=== PATIENT | male | born 1960 | race Caucasian/White ===

== ENCOUNTER → 2017-09-26 08:26 | Outpatient (CLI) | payer OTHER, SELFPAY ==
[2017-09-26 10:12] LABS: Hemoglobin A1C% w Est Avg Glu 8.6 % (4.0-6.0)
== END ==
PROVIDERS: PCP Internal Medicine; Visit Provider Internal Medicine
DX: E11.9 Type 2 diabetes mellitus without complications (principal)
CPT/HCPCS: 36415; 83036

== ENCOUNTER → 2017-12-02 07:48 | Outpatient (CLI) | payer OTHER, SELFPAY ==
[2017-12-02 08:19] LABS: Hemoglobin A1C% w Est Avg Glu 8.5 % (4.0-6.0)
[2017-12-02 08:39] LABS: Alanine Aminotransferase 44 IU/L (21-72); Albumin 4.1 g/dL (3.5-5.0); Albumin Globulin Ratio 1.5 (1.0-2.8); Alkaline Phosphatase 46 U/L (38-126); Aspartate Aminotransferase 29 IU/L (17-59); BUN Creatinine Ratio 14.3 (6-22); Bilirubin Total 0.7 mg/dL (0.2-1.3); Blood Urea Nitrogen 10 mg/dL (9-20); Calcium 9.3 mg/dL (8.4-10.2); Carbon Dioxide 31 mmol/L (22-32); Chloride 102 mmol/L (98-107); Cholesterol 153 mg/dL (140-199); Estimated Glomerular Filt Rate > 60.0 mL/min (>60); Globulin 2.8 g/dL (1.7-4.1); Glucose 105 mg/dL (70-100); HDL Cholesterol 67 mg/dL (40-60); HEMOLYSIS < 15 (0-50); LDL Cholesterol Calculated 78 mg/dL (<100); Potassium 4.4 mmol/L (3.4-5.1); Sodium 139 mmol/L (137-145); Total Protein 6.9 g/dL (6.3-8.2); Triglycerides 39 mg/dL (35-150)
[2017-12-02 08:42] LABS: Creatinine Urine Random 77.4 mg/dL
[2017-12-02 08:47] LABS: Microalbumi Creatinin Ratio Ur 7.7 ug/mg CR (<30); Microalbumin Urine Random < 0.6 mg/dL (0-1.6)
== END ==
PROVIDERS: PCP Internal Medicine; Visit Provider Internal Medicine Endocrinology, Diabetes & Metabolism
DX: E11.65 Type 2 diabetes mellitus with hyperglycemia (principal)
CPT/HCPCS: 36415; 80053; 80061; 82043; 82570; 83036

== ENCOUNTER → 2018-03-15 08:08 | Outpatient (CLI) | payer OTHER, SELFPAY ==
[2018-03-15 09:45] LABS: Hemoglobin A1C% w Est Avg Glu 8.6 % (4.0-6.0)
== END ==
PROVIDERS: PCP Internal Medicine; Visit Provider Internal Medicine Endocrinology, Diabetes & Metabolism
DX: E11.9 Type 2 diabetes mellitus without complications (principal)
CPT/HCPCS: 36415; 83036

== ENCOUNTER → 2018-06-16 07:55 | Outpatient (CLI) | payer OTHER, SELFPAY ==
[2018-06-16 09:19] LABS: Hemoglobin A1C% w Est Avg Glu 8.1 % (4.0-6.0)
[2018-06-16 09:45] LABS: Cholesterol 170 mg/dL (140-199); HDL Cholesterol 68 mg/dL (40-60); LDL Cholesterol Calculated 89 mg/dL (<100); Triglycerides 66 mg/dL (35-150)
== END ==
PROVIDERS: Family Provider Internal Medicine; PCP Internal Medicine; Visit Provider Internal Medicine Endocrinology, Diabetes & Metabolism
DX: E11.9 Type 2 diabetes mellitus without complications (principal)
CPT/HCPCS: 36415; 80061; 83036

== ENCOUNTER → 2018-09-22 07:42 | Outpatient (CLI) | payer OTHER, SELFPAY ==
[2018-09-22 09:20] LABS: Hemoglobin A1C% w Est Avg Glu 8.5 % (4.0-6.0)
[2018-09-22 09:26] LABS: Cholesterol 167 mg/dL (140-199); HDL Cholesterol 55 mg/dL (40-60); LDL Cholesterol Calculated 100 mg/dL (<100); Triglycerides 59 mg/dL (35-150)
== END ==
PROVIDERS: Family Provider Internal Medicine; PCP Internal Medicine; Visit Provider Internal Medicine Endocrinology, Diabetes & Metabolism
DX: E11.9 Type 2 diabetes mellitus without complications (principal)
CPT/HCPCS: 36415; 80061; 83036

== ENCOUNTER → 2018-12-29 07:36 | Outpatient (CLI) | payer OTHER, SELFPAY ==
[2018-12-29 08:43] LABS: Hemoglobin A1C% w Est Avg Glu 8.4 % (4.0-6.0)
[2018-12-29 09:22] LABS: Creatinine Urine Random 84.2 mg/dL
[2018-12-29 09:23] LABS: Alanine Aminotransferase 25 IU/L (21-72); Albumin 4.2 g/dL (3.5-5.0); Albumin Globulin Ratio 1.5 (1.0-2.8); Alkaline Phosphatase 51 U/L (38-126); Aspartate Aminotransferase 22 IU/L (17-59); BUN Creatinine Ratio 14.3 (6-22); Bilirubin Total 0.7 mg/dL (0.2-1.3); Blood Urea Nitrogen 10 mg/dL (9-20); Calcium 9.9 mg/dL (8.4-10.2); Carbon Dioxide 29 mmol/L (22-32); Chloride 95 mmol/L (98-107); Estimated Glomerular Filt Rate > 60.0 mL/min (>60); Globulin 2.8 g/dL (1.7-4.1); Glucose 160 mg/dL (70-100); HEMOLYSIS < 15 (0-50); Potassium 4.5 mmol/L (3.4-5.1); Sodium 135 mmol/L (137-145)
[2018-12-29 09:24] LABS: Microalbumi Creatinin Ratio Ur 7.1 ug/mg CR (<30); Microalbumin Urine Random 0.6 mg/dL (0-1.6)
== END ==
PROVIDERS: PCP Internal Medicine; Visit Provider Internal Medicine Endocrinology, Diabetes & Metabolism
DX: E11.9 Type 2 diabetes mellitus without complications (principal)
CPT/HCPCS: 36415; 80053; 82043; 82570; 83036

== ENCOUNTER → 2019-03-30 07:53 | Outpatient (CLI) | payer OTHER, SELFPAY ==
[2019-03-30 09:25] LABS: Hemoglobin A1C% w Est Avg Glu 8.9 % (4.0-6.0)
== END ==
PROVIDERS: PCP Internal Medicine Endocrinology, Diabetes & Metabolism; Visit Provider Internal Medicine Endocrinology, Diabetes & Metabolism
DX: E11.9 Type 2 diabetes mellitus without complications (principal)
CPT/HCPCS: 36415; 83036

== ENCOUNTER 2019-04-24 04:48 | Emergency (ER) | payer OTHER, SELFPAY ==
[2019-04-24 05:06] VITALS: BP 159/97; PULSE 77; RESP 18; TEMP 36.9; O2SAT 99; BMI 23.3
--- NOTE | 2019-04-24 05:06 | DI.CT.S_ITS ---
PROCEDURE: CT ABDOMEN PELVIS W CON INDICATIONS: severe Left sided abdominal pain TECHNIQUE: After the administration of intravenous contrast, 5 mm thick sections acquired from the diaphragm to the symphysis. 5 mm coronal and sagittal reformats were acquired. For radiation dose reduction, the following was used: automated exposure control, adjustment of mA and/or kV according to patient size. COMPARISON: None. FINDINGS: Image quality: Excellent. ABDOMEN: Lung bases: Lung bases are clear. Heart size is normal. Solid organs: Mild hepatic steatosis. Liver is normal in size and enhancement. Gallbladder is normal. Biliary system is non dilated. Pancreas enhances normally. Spleen is normal in size and enhancement. No adrenal nodules. Kidneys demonstrate normal size and enhancement, without hydronephrosis. Peritoneum and bowel: There is a large amount of stool in colon. Bowel loops demonstrate normal wall thickness and caliber. No free fluid or air. Nodes and vessels: No retroperitoneal or mesenteric adenopathy by size criteria. Aorta and inferior vena cava are normal in size. Miscellaneous: No ventral hernias. PELVIS: Genitourinary: Bladder wall is mildly thickened. Hyperdensity in dependent bladder lumen may be excreted contrast or small stones cannot be excluded. Prominent prostate. Miscellaneous: No inguinal hernias or adenopathy. Bones: No suspicious bony lesions. No vertebral body compression fractures. Degenerative changes in the lower lumbar spine. IMPRESSION: 1. Mild bladder wall thickening, which may be secondary to cystitis or chronic bladder outlet obstruction. 2. Mild prostatic enlargement. 3. Hepatic steatosis. No significant discrepancy with the director of category management radiology preliminary report. Dictated by: Brandee Sen M.D. on 04/24/2019 at 8:36 Approved by: Brandee Sen M.D. on 04/24/2019 at 8:47
--- NOTE | 2019-04-24 05:07 | ED.ABDPAIN ---
HPI - Abdominal Pain General Chief Complaint: Abdominal Pain Stated Complaint: pain and swelling left side abdomen Time Seen by Provider: 04/24/19 04:51 Source: patient and family Mode of arrival: Ambulatory Limitations: no limitations History of Present Illness HPI narrative: 58-year-old male nonsmoker with history of type 2 diabetes presents with his in the chief complaint of about 2 weeks of gradually worsening left-sided abdominal pain. He states that it is sharp and stabbing and seems to be worse at night. He denies any obvious radiation. He has had no fever chills nor nausea, vomiting or diarrhea. He denies any change in bowel habits. He denies dysuria, frequency or urgency. He denies any injury. He takes no blood thinners. He denies any obvious provocation or palliation MD complaint: abdominal pain and flank pain Onset (ago): week(s) Pain Consistency: intermittent and colicky Location: LUQ and L flank Severity: moderate Quality: cramping, stabbing and aching Relieving factors: nothing Exacerbating factors: nothing Related Data Previous Rx's Medication Instructions Recorded pantoprazole [Protonix] 40 mg PO DAILY #20 tab 04/24/19 Allergies Allergy/AdvReac Type Severity Reaction Status Date / Time No Known Drug Allergies Allergy Verified 04/24/19 05:10 Review of Systems Constitutional Constitutional: Denies chills, Denies fatigue, Denies fever(s), Denies frequent falls, Denies lethargy and Denies weakness Eyes Eyes: Denies change in vision, Denies eye discharge, Denies irritation and Denies loss of vision ENT Ears, Nose, Mouth, and Throat: Denies change in voice, Denies dizziness, Denies neck pain, Denies sore throat and Denies throat swelling Cardiovascular Cardiovascular: Denies chest pain, Denies irregular heart rhythm, Denies lightheadedness, Denies palpitations, Denies dyspnea, Denies dyspnea on exertion and Denies orthopnea Respiratory Respiratory: Denies cough, Denies dyspnea, Denies dyspnea on exertion and Denies wheezing Gastrointestinal Gastrointestinal: Reports abdominal pain, Denies change in bowel habits, Denies diarrhea, Denies nausea and Denies vomiting Genitourinary Genitourinary: Denies hematuria, Denies flank pain, Denies urinary incontinence and Denies urinary urgency Musculoskeletal Musculoskeletal: Denies back pain, Denies muscle weakness, Denies neck pain, Denies numbness and Denies tingling Integumentary/Breasts Skin/Breast: Denies pruritus, Denies erythema, Denies rash and Denies wounds Neurologic Neurologic: Denies behavioral changes, Denies confusion, Denies dizziness, Denies frequent falls, Denies loss of vision, Denies numbness, Denies tingling and Denies weakness Psychiatric Psychiatric: Denies anxiety, Denies behavioral changes, Denies confusion, Denies depression, Denies homicidal ideation and Denies suicidal ideation Endocrine Endocrine: Denies fatigue, Denies flushing and Denies palpitations Hematologic/Lymphatic Hematologic/Lymphatic: Denies easy bruising Allergic/Immunologic Allergic/Immunologic: Denies urticaria, Denies throat swelling and Denies wheezing Patient History Social History Smoking Status: Never smoker Smoking Status: Never smoker Exam Narrative Exam Narrative: GENERAL: [58] year old patient appears stated age. Well-nourished, well-developed patient, in mild distress. HEAD: Atraumatic. Normocephalic. EYES: Pupils equal round and reactive. Extraocular motions intact. No scleral icterus. No injection or drainage. ENT: Nose without bleeding, purulent drainage. Throat without erythema, tonsillar hypertrophy or exudate. Airway patent. NECK: Trachea midline. Non tender CARDIOVASCULAR: Regular rate and rhythm without murmurs, gallops, or rubs. RESPIRATORY: Clear to auscultation. Breath sounds equal bilaterally. No wheezes, rales, or rhonchi. GASTROINTESTINAL: Abdomen soft, non-tender, nondistended. EXTREMITIES: No edema or joint tenderness. BACK: Nontender without deformity or crepitance. No flank tenderness. NEURO: AOx3. SKIN: No rash or erythema of visible areas Initial Vital Signs Initial Vital Signs: Vital Signs Temperature 98.4 F 04/24/19 05:06 Pulse Rate 77 04/24/19 05:06 Respiratory Rate 18 04/24/19 05:06 Blood Pressure 159/97 H 04/24/19 05:06 Pulse Oximetry 99 04/24/19 05:06 Course Orders Ordered: ED Orders 04/24/19 05:06 CT abdomen pelvis w con Stat 04/24/19 05:15 Complete Blood Count AUTO DIFF Stat Comprehensive Metabolic Panel Stat Ethanol (ETOH) Stat Lipase Stat Prothrombin Time INR Stat Sodium Chloride (Normal Saline 0.9%) 1,000 mls @ 150 mls/hr IV CONT SJ Last Admin: 04/24/19 05:25 Dose: 150 mls/hr Documented by: RENETTA Discontinued Medications Pantoprazole Sodium (Protonix) 40 mg IV NOW ONE Stop: 04/24/19 06:26 Last Admin: 04/24/19 06:45 Dose: 40 mg Documented by: RENETTA Vital Signs Vital signs: Vital Signs - 8 hr 04/24/19 05:06 Temperature 98.4 F Pulse Rate 77 Respiratory Rate 18 Blood Pressure 159/97 H Pulse Oximetry 99 MDM - Abdominal Pain Lab Data Result diagrams: 04/24/19 05:15 04/24/19 05:15 Labs: Lab Results 04/24/19 04/24/19 04/24/19 Range/Units 05:15 05:15 05:15 WBC 4.3 L (4.5-11.0) X10^3/uL RBC 4.48 L (4.5-5.9) X10^6/uL Hgb 14.5 (13.5-17.5) g/dL Hct 41.7 (41-53) % MCV 93.0 (80-100) fL MCH 32.4 (26-34) PG MCHC 34.8 (30-36) % RDW 13.1 (11.6-14.8) % Plt Count 291 (150-400) X10^3/uL Neut % (Auto) 47.0 L (50-75) % Lymph % (Auto) 34.0 (25-40) % Whitfield % (Auto) 14.0 (3-14) % Eos % (Auto) 4.3 H (2-4) % Baso % (Auto) 0.7 (0-2) % Neut # (Auto) 2000 (3384-4244) /uL Lymph # (Auto) 1500 (3408-2588) /uL Whitfield # (Auto) 600 (0-900) /uL Eos # (Auto) 200 (0-450) /uL Baso # (Auto) 0 (0-100) /uL PT 11.5 (10.1-12.7) SECONDS INR 1.0 (0.9-1.3) Sodium 132 L (137-145) mmol/L Potassium 5.0 (3.4-5.1) mmol/L Chloride 94 L (98-107) mmol/L Carbon Dioxide 28 (22-32) mmol/L BUN 12 (9-20) mg/dL Creatinine 0.70 (0.66-1.25) mg/dL Estimated GFR > 60.0 (>60) mL/min BUN/Creatinine Ratio 17.1 (6-22) Glucose 277 H (70-100) mg/dL Calcium 9.5 (8.4-10.2) mg/dL Total Bilirubin 0.9 (0.2-1.3) mg/dL AST 37 (17-59) IU/L ALT 21 (<50) IU/L Alkaline Phosphatase 44 (38-126) U/L Total Protein 7.6 (6.3-8.2) g/dL Albumin 4.5 (3.5-5.0) g/dL Globulin 3.1 (1.7-4.1) g/dL Albumin/Globulin Ratio 1.5 (1.0-2.8) Lipase 27 (23-300) U/L Ethyl Alcohol ( - 10) mg/dL 04/24/19 Range/Units 05:15 WBC (4.5-11.0) X10^3/uL RBC (4.5-5.9) X10^6/uL Hgb (13.5-17.5) g/dL Hct (41-53) % MCV (80-100) fL MCH (26-34) PG MCHC (30-36) % RDW (11.6-14.8) % Plt Count (150-400) X10^3/uL Neut % (Auto) (50-75) % Lymph % (Auto) (25-40) % Whitfield % (Auto) (3-14) % Eos % (Auto) (2-4) % Baso % (Auto) (0-2) % Neut # (Auto) (2085-8501) /uL Lymph # (Auto) (2496-9417) /uL Whitfield # (Auto) (0-900) /uL Eos # (Auto) (0-450) /uL Baso # (Auto) (0-100) /uL PT (10.1-12.7) SECONDS INR (0.9-1.3) Sodium (137-145) mmol/L Potassium (3.4-5.1) mmol/L Chloride (98-107) mmol/L Carbon Dioxide (22-32) mmol/L BUN (9-20) mg/dL Creatinine (0.66-1.25) mg/dL Estimated GFR (>60) mL/min BUN/Creatinine Ratio (6-22) Glucose (70-100) mg/dL Calcium (8.4-10.2) mg/dL Total Bilirubin (0.2-1.3) mg/dL AST (17-59) IU/L ALT (<50) IU/L Alkaline Phosphatase (38-126) U/L Total Protein (6.3-8.2) g/dL Albumin (3.5-5.0) g/dL Globulin (1.7-4.1) g/dL Albumin/Globulin Ratio (1.0-2.8) Lipase (23-300) U/L Ethyl Alcohol < 10 ( - 10) mg/dL Discharge Plan Departure Patient Disposition: Home Clinical Impression: Abdominal pain Qualifiers: Abdominal location: left upper quadrant Qualified Code(s): R10.12 - Left upper quadrant pain Instructions: DI for Abdominal Pain-Adult Activity Restrictions/Additional Instructions: *You have been diagnosed with [left upper quadrant pain] *What to do: *Take medications as directed *Follow up with your primary care provider in 2-3 days, call for an appointment. Let them know you were seen in the Emergency Department and that we ask that you be seen in follow up *Return to ER if you should have any new, worsening or concerning symptoms Prescriptions: New pantoprazole [Protonix] 40 mg tablet,delayed release (DR/EC) 40 mg PO DAILY Qty: 20 RF: 0 Referrals: Reymundo Ramos MD [Primary Care Provider] -
--- NOTE | 2019-04-24 05:24 | PC.NURSE ---
reports difficult stools last few days
[2019-04-24] MEDS: SODIUM CHLORIDE 0.9% 1,000 ML 150 ML IV (05:25)
[2019-04-24 05:31] LABS: Add Manual Diff / Slide Review NO; Basophils Absolute Auto 0 /uL (0-100); Basophils Percent Auto 0.7 % (0-2); Eosinophils Absolute Auto 200 /uL (0-450); Eosinophils Percent Auto 4.3 % (2-4); Hematocrit 41.7 % (41-53); Hemoglobin 14.5 g/dL (13.5-17.5); Lymphocytes Absolute Auto 1500 /uL (1100-4500); Mean Corpuscular HGB Conc 34.8 % (30-36); Mean Corpuscular Hemoglobin 32.4 PG (26-34); Monocytes Absolute Auto 600 /uL (0-900); Neutrophils Absolute Auto 2000 /uL (1500-7000); Platelet Count 291 X10^3/uL (150-400); Red Blood Cell Count 4.48 X10^6/uL (4.5-5.9); Red Cell Distribution Width 13.1 % (11.6-14.8); White Blood Cell Count 4.3 X10^3/uL (4.5-11.0)
[2019-04-24 05:36] LABS: Prothrombin Time 11.5 SECONDS (10.1-12.7)
[2019-04-24 05:40] LABS: Alanine Aminotransferase 21 IU/L (<50); Albumin 4.5 g/dL (3.5-5.0); Albumin Globulin Ratio 1.5 (1.0-2.8); Alkaline Phosphatase 44 U/L (38-126); Aspartate Aminotransferase 37 IU/L (17-59); BUN Creatinine Ratio 17.1 (6-22); Bilirubin Total 0.9 mg/dL (0.2-1.3); Blood Urea Nitrogen 12 mg/dL (9-20); Calcium 9.5 mg/dL (8.4-10.2); Carbon Dioxide 28 mmol/L (22-32); Chloride 94 mmol/L (98-107); Estimated Glomerular Filt Rate > 60.0 mL/min (>60); Ethanol (ETOH) < 10 mg/dL; Globulin 3.1 g/dL (1.7-4.1); Glucose 277 mg/dL (70-100); Lipase 27 U/L (23-300); Sodium 132 mmol/L (137-145); Total Protein 7.6 g/dL (6.3-8.2)
[2019-04-24 05:41] LABS: HEMOLYSIS 147 (0-50)
--- NOTE | 2019-04-24 05:43 | PC.NURSE ---
left forearm IV blew in ct. CT zuly placed 20g RAC and continued with exam. Patient reports 2/10 pain from compromised IV site. 1cm radius bleb present at IV site. pressure dressing applied with coban and 2x2. Patient reports no pain after IV removed.
--- NOTE | 2019-04-24 05:47 | PC.NURSE ---
placed by [facility] tech
[2019-04-24] MEDS: PANTOPRAZOLE 40 MG VIAL IV (06:45)
[2019-04-24 07:16] VITALS: BP 147/84; PULSE 63; RESP 14; O2SAT 99
== END 2019-04-24 07:19 | disposition home or self-care (01) ==
PROVIDERS: Emergency Provider Emergency Medicine; PCP Internal Medicine Endocrinology, Diabetes & Metabolism
DX: R10.12 Left upper quadrant pain (principal)
CPT/HCPCS: 36415; 74177; 80053; 80320; 83690; 85025; 85610; 96361; 96374; 99283; 99284; C9113; Q9967

== ENCOUNTER → 2019-07-02 08:00 | Outpatient (CLI) | payer BC, SELFPAY ==
[2019-07-02 08:35] LABS: Hemoglobin A1C% w Est Avg Glu 8.1 % (4.0-6.0)
[2019-07-02 09:31] LABS: Cholesterol 155 mg/dL (140-199); HDL Cholesterol 72 mg/dL (40-60); LDL Cholesterol Calculated 74 mg/dL (<100); Triglycerides 47 mg/dL (35-150)
== END ==
PROVIDERS: PCP Internal Medicine Endocrinology, Diabetes & Metabolism; Referring Provider Psychiatry & Neurology Neurology; Visit Provider Psychiatry & Neurology Neurology
DX: E11.9 Type 2 diabetes mellitus without complications (principal)
CPT/HCPCS: 36415; 80061; 83036

== ENCOUNTER → 2019-09-28 07:38 | Outpatient (CLI) | payer BC, SELFPAY ==
[2019-09-28 08:19] LABS: Hemoglobin A1C% w Est Avg Glu 8.3 % (4.0-6.0)
== END ==
PROVIDERS: PCP Internal Medicine Endocrinology, Diabetes & Metabolism; Referring Provider Psychiatry & Neurology Neurology; Visit Provider Psychiatry & Neurology Neurology
DX: E11.9 Type 2 diabetes mellitus without complications (principal)
CPT/HCPCS: 36415; 83036

== ENCOUNTER → 2019-12-27 07:26 | Outpatient (CLI) | payer BC, SELFPAY ==
[2019-12-27 08:50] LABS: Hemoglobin A1C% w Est Avg Glu 7.8 % (4.0-6.0)
[2019-12-27 08:57] LABS: Creatinine Urine Random 64.4 mg/dL
[2019-12-27 09:01] LABS: Alanine Aminotransferase 22 IU/L (<50); Albumin 4.2 g/dL (3.5-5.0); Albumin Globulin Ratio 1.7 (1.0-2.8); Alkaline Phosphatase 45 U/L (38-126); Aspartate Aminotransferase 30 IU/L (17-59); BUN Creatinine Ratio 11.8 (6-22); Bilirubin Total 0.6 mg/dL (0.2-1.3); Blood Urea Nitrogen 8 mg/dL (9-20); Calcium 9.8 mg/dL (8.4-10.2); Carbon Dioxide 29 mmol/L (22-32); Chloride 96 mmol/L (98-107); Estimated Glomerular Filt Rate > 60.0 mL/min (>60); Globulin 2.5 g/dL (1.7-4.1); Glucose 128 mg/dL (70-100); HEMOLYSIS < 15 (0-50); Potassium 4.8 mmol/L (3.4-5.1); Sodium 133 mmol/L (137-145); Total Protein 6.7 g/dL (6.3-8.2)
[2019-12-27 09:03] LABS: Microalbumi Creatinin Ratio Ur 9.3 ug/mg CR (<30); Microalbumin Urine Random < 0.6 mg/dL (0-1.6)
== END ==
PROVIDERS: PCP Internal Medicine Endocrinology, Diabetes & Metabolism; Referring Provider Internal Medicine Endocrinology, Diabetes & Metabolism; Visit Provider Internal Medicine Endocrinology, Diabetes & Metabolism
DX: E11.9 Type 2 diabetes mellitus without complications (principal)
CPT/HCPCS: 36415; 80053; 82043; 82570; 83036

== ENCOUNTER → 2020-07-09 07:45 | Outpatient (CLI) | payer BC, SELFPAY ==
[2020-07-09 08:18] LABS: Hemoglobin A1C% w Est Avg Glu 8.1 % (4.0-6.0)
== END ==
PROVIDERS: PCP Internal Medicine Endocrinology, Diabetes & Metabolism; Referring Provider Internal Medicine Endocrinology, Diabetes & Metabolism; Visit Provider Internal Medicine Endocrinology, Diabetes & Metabolism
DX: E11.65 Type 2 diabetes mellitus with hyperglycemia (principal)
CPT/HCPCS: 36415; 83036

== ENCOUNTER → 2020-07-23 07:49 | Outpatient (CLI) | payer BC, SELFPAY ==
[2020-07-23] MEDS: COVID-19 VACC #1, MRNA(MOD) 100 MCG/0.5 ML VIAL IM (07:55)
== END ==
PROVIDERS: PCP Internal Medicine Endocrinology, Diabetes & Metabolism; Visit Provider Internal Medicine
DX: Z23 Encounter for immunization (principal)
CPT/HCPCS: 0011A; 91301

== ENCOUNTER → 2020-08-20 07:53 | Outpatient (CLI) | payer BC, SELFPAY ==
[2020-08-20] MEDS: COVID-19 VACC #2, MRNA(MOD) 100 MCG/0.5 ML VIAL IM (08:03)
== END ==
PROVIDERS: PCP Internal Medicine Endocrinology, Diabetes & Metabolism; Visit Provider Internal Medicine
DX: Z23 Encounter for immunization (principal)
CPT/HCPCS: 0012A; 91301

== ENCOUNTER → 2020-11-05 09:56 | Outpatient (CLI) | payer BC, SELFPAY ==
[2020-11-05 10:26] LABS: Add Manual Diff / Slide Review NO; Basophils Absolute Auto 0 /uL (0-100); Basophils Percent Auto 0.8 % (0-2); Eosinophils Absolute Auto 100 /uL (0-450); Eosinophils Percent Auto 1.7 % (2-4); Hematocrit 40.6 % (41-53); Hemoglobin 13.8 g/dL (13.5-17.5); Lymphocytes Absolute Auto 1000 /uL (1100-4500); Lymphocytes Percent Auto 23.9 % (25-40); Mean Corpuscular HGB Conc 34.1 % (30-36); Mean Corpuscular Volume 93.9 fL (80-100); Monocytes Absolute Auto 500 /uL (0-900); Monocytes Percent Auto 12.7 % (3-14); Neutrophils Absolute Auto 2500 /uL (1500-7000); Neutrophils Percent Auto 60.9 % (50-75); Platelet Count 259 X10^3/uL (150-400); Red Blood Cell Count 4.33 X10^6/uL (4.5-5.9); Red Cell Distribution Width 12.9 % (11.6-14.8); White Blood Cell Count 4.1 X10^3/uL (4.5-11.0)
[2020-11-05 10:53] LABS: Cholesterol 178 mg/dL (140-199); HDL Cholesterol 91 mg/dL (40-60); LDL Cholesterol Calculated 79 mg/dL (<100); Triglycerides 42 mg/dL (35-150)
[2020-11-05 11:24] LABS: Prostate Specific Antigen 1.97 ng/mL (0.10-4.00)
== END ==
PROVIDERS: PCP Internal Medicine; Referring Provider Internal Medicine; Visit Provider Internal Medicine
DX: Z12.5 Encounter for screening for malignant neoplasm of prostate (principal); E78.49 Other hyperlipidemia; R10.12 Left upper quadrant pain
CPT/HCPCS: 36415; 80061; 84153; 85025

== ENCOUNTER 2020-12-10 09:45 | Outpatient (RCR) | payer BC, SELFPAY ==
--- NOTE | 2020-10-03 12:35 | PT.OIE ---
Current Diagnoses Sciatica, unspecified side (10/03/20) Visit Care Team Role Provider Type Duke Leon MD Attending Provider Physician Primary Care Provider Referring Provider Specialty: Internal Medicine Address: [address] [place] [address], [id number] Email: [email or web address] by [email or web address] in [email or web address] Initial Evaluation PT-OP-A Visit Information Start: 10/03/20 12:09 Freq: Status: Active Protocol: Document 10/03/20 12:10 HH (Rec: 10/03/20 12:35 [email or web address]) Out-Patient Physical Therapy Visit Information Visit Information Visit Type Initial Evaluation Visit Start Time 09:45 Visit Stop Time 10:30 Total Visit Minutes 45 Visit Number 1/6 Number of YEAST SUPERVISOR Visits 0 Evaluation Information Evaluation Date 10/03/20 Precautions Precautions DMII PT-OP-B Current Condition Start: 10/03/20 12:09 Freq: Status: Active Protocol: Document 10/03/20 12:10 HH (Rec: 10/03/20 12:35 [email or web address]) Current Condition History of Current Condition Onset Date 10 days ago Current Complaints R lateral hip pain, radiating pain to lateral knee, difficulty sleeping History of Current Condition Marlo is a 60 active and healthy male here for his new onset of R lateral hip pain with radiating pain to lateral knee started 10 days ago. No known injury. His pain is very severe 7/10 that affects his sleep since then. He has not been able to sleep well and on his R side (pt is a side sleeper). He notices bending over, lying in flat surface tend to aggravate his pain and it comes with some tingling sensation. Standing and walking seem not to bother him as much. 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 PMH includes a hip injury at the same location few years ago from play ice hockey. Future Testing and Treatments Planned pt is currently taking oxycodone and antiinflammatory medications for pain management. Personal Factors Other Personal Factors That May Effect DM II Therapy/Recovery PT-OP-C Subjective Start: 10/03/20 12:09 Freq: Status: Active Protocol: Document 10/03/20 12:10 HH (Rec: 10/03/20 12:35 [email or web address]) Patient Questionnaires Oswestry Low Back Index Oswestry Score 12 Oswestry Impairment 1 to 19% Impaired (Score 1-19) OP-PT Pain Assessment Location R hip Pain Location Details Lateral hip (above greater trochanter) Intensity 7 Scale Used Numeric (0 - 10) Description Aching,Sharp Frequency Frequent Pain Aggravating Factors Position,Activity,Bending Pain Alleviating Factors Standing Other Pain Alleviating Factors walking PT-OP-D Balance Start: 10/03/20 12:09 Freq: Status: Active Protocol: Document 10/03/20 12:10 HH (Rec: 10/03/20 12:35 [email or web address]) Balance Tests Single Limb Standing Single Limb- Right >20 no deficits noted Single Limb- Left >20 no deficits noted PT-OP-F Manual Assessment Start: 10/03/20 12:09 Freq: Status: Active Protocol: Document 10/03/20 12:10 HH (Rec: 10/03/20 12:35 [email or web address]) Manual Assessments Soft Tissue Assessment Soft Tissue Mobility Assessment significant pain with pressure at gluteus medius tendon above R greater trochanter. moderate discomfort with pressure at R TFL PT-OP-G Mobility & Gait Start: 10/03/20 12:09 Freq: Status: Active Protocol: Document 10/03/20 12:10 HH (Rec: 10/03/20 12:35 [email or web address]) OP Gait Assessment Comments Gait Comments L hip drop noted during R stance phase PT-OP-H Neuro Start: 10/03/20 12:09 Freq: Status: Active Protocol: Document 10/03/20 12:10 HH (Rec: 10/03/20 12:35 [email or web address]) Sensation Evaluation Gross Sensation Gross Sensation WNL Deep Tendon Reflex & Clonus Assessment Deep Tendon Reflex Left Patellar Deep Tendon Reflex 2+ Normal Right Patellar Deep Tendon Reflex 1+ Diminished Bilateral Achilles Deep Tendon Reflex 2+ Normal PT-OP-K Range of Motion Start: 10/03/20 12:09 Freq: Status: Active Protocol: Document 10/03/20 12:10 HH (Rec: 10/03/20 12:35 [email or web address]) Lumbar Spine Range of Motion Lumbar Spine Active Degrees Comments toe touch test= 12.5 inches from the floor. insufficent lumbar flexion and hip flexion SB to R= 22 inches with posterior hip pain on R SB to L= 23 inches without pain Hip Goniometric Range of Motion Hip Left Active Hip ROM WFL No Straight Leg Raise 48 Right Active Hip ROM WFL No Straight Leg Raise 45 PT-OP-L Special Tests Start: 10/03/20 12:09 Freq: Status: Active Protocol: Document 10/03/20 12:10 HH (Rec: 10/03/20 12:35 [email or web address]) Special Tests Lumbar Spine Special Tests quadrant test Test Results pain at posterior hip Comments extension, SB and rot to R Slump Test Results -ve Straight Leg Raise Test Results -ve Hip Special Tests KIRSTEN test Test Results +VE B Comments both LE stay at parallel to table without any adduction. PT-OP-M Strength Start: 10/03/20 12:09 Freq: Status: Active Protocol: Document 10/03/20 12:10 HH (Rec: 10/03/20 12:35 [email or web address]) Hip Strength Hip Manual Muscle Testing Right Flexion (L2) 4+ Good+ Extension (S1) 4+ Good+ Abduction 4+ Good+ Adduction 4+ Good+ Left Flexion (L2) 4+ Good+ Extension (S1) 4+ Good+ Abduction 4+ Good+ Adduction 4+ Good+ Knee Strength Knee Manual Muscle Testing Right Flexion (S2) 5 Normal Extension (L3) 5 Normal Left Flexion (S2) 5 Normal Extension (L3) 5 Normal Ankle/Foot Strength Ankle and Foot Manual Muscle Testing Right Dorsiflexion (L4) 5 Normal Plantarflexion (S1) 5 Normal Left Dorsiflexion (L4) 5 Normal Plantarflexion (S1) 5 Normal PT-OP-Q Treatments Start: 10/03/20 12:09 Freq: Status: Active Protocol: Document 10/03/20 12:10 HH (Rec: 10/03/20 12:35 [email or web address]) Therapeutic Exercises Standing Exercises tennis ball Standing Exercise Name self release at R glute med tendon against wall Side right Comments HEP PT-OP-T Assessment and Plan Start: 10/03/20 12:09 Freq: Status: Active Protocol: Document 10/03/20 12:10 HH (Rec: 10/03/20 12:35 [email or web address]) Physical Therapy Assessment Rehab Potential Rehabilitation Potential Excellent Evaluation Complexity Number of Personal Factors/Comorbidities 0 Number of Body Systems Impaired 1-2 Clinical Presentation at Evaluation Stable Impairments Impairments Activity Tolerance,Balance, Functional Activities, Functional Mobility,Gait,Pain, Posture,ROM,Soft Tissue Mobility,Strength,Transfers Goals HEP Impairment pt does not have a HEP now Short Term Goal (STG) pt will be compliant to his dialy HEP safely and independently, which allows him to manage his discomfort and increase his flexilibty STG Duration 4 weeks activity tolerance Impairment pt is scared to continue his yard work and weekly running routine. Short Term Goal (STG) pt will be able to initiate his running routine to 2 times /week with 1-2 miles each time without increase in discomfort STG Duration 4weeks Detention Goal (LTG) pt will be able to complete his running routine to 3 times /week with 3-4 miles each time without discomfort LTG Duration 8weeks pain Impairment pt has pain at night 7/10 Short Term Goal (STG) pt will have pain no more than 5/10 at night to improve his sleep 3 out of 7 nights. STG Duration 4 weeks Detention Goal (LTG) pt will have pain no more than 3/10 at night so he sleep on his R side and maintain good quality of sleep 5 out of 7 nights. LTG Duration 8 weeks Assessment Summary Assessment Marlo is a 60yo active and healthy male here for his subacute R lateral hip and knee pain started 10 days ago with no known injury. Upon assessment, pt presents signs of R gluteal medius tendinopathy with severe pain with pressure at the tendon which also radiates side of the hip. His hip strength is WFL but notice significant tightness with hamstrings and lateral musculature (+VE for KIRSTEN test). He also presents mild L hip drop during stance phase with RLE which indicates possible motor control/ stability deficits with single leg stance. Pt will benefit from skilled therapy to improve his overall hip mobility, stability and strength in order for him to sleep normally and complete his daily tasks again. Physical Therapy Plan Frequency and Duration Frequency of Treatment 1x/Week Duration of Treatment 8 weeks Plan of Care Start Date 10/03/20 Plan of Care End Date 12/02/20 Therapeutic Interventions Therapeutic Interventions Aquatic Therapy,Balance Training,Gait Training,Home Exercise Program,Joint Mobilizations,Manual Therapy, Neuromuscular Re-education, Patient/Caregiver Education, Self-Care/Home Management,Soft Tissue Mobilization,Taping, Therapeutic Activities, Therapeutic Exercises Modalities Cold Pack/Ice Massage,Electric Stimulation,Hot Packs, Infrared Therapy,Traction- Mechanical,Ultrasound Next Visit Focus/Plan Next Note Type Treatment Note Next Visit Plan review tennis ball release stm at glute med tendon lateral hip line stretch open book stretch hip stability ex
--- NOTE | 2020-10-03 12:36 | PT.OPPOC ---
Physical, Occupational & Speech Therapy At [facility] Current Diagnoses Sciatica, unspecified side (10/03/20) Visit Care Team Role Provider Type Duke Leon MD Attending Provider Physician Primary Care Provider Referring Provider Specialty: Internal Medicine Address: [address] [place] [address], [id number] Email: [email or web address] Plan Of Care PT-OP-T Assessment and Plan Start: 10/03/20 12:09 Freq: Status: Active Protocol: Document 10/03/20 12:10 HH (Rec: 10/03/20 12:35 HH [email or web address]) Physical Therapy Assessment Rehab Potential Rehabilitation Potential Excellent Evaluation Complexity Number of Personal Factors/Comorbidities 0 Number of Body Systems Impaired 1-2 Clinical Presentation at Evaluation Stable Impairments Impairments Activity Tolerance,Balance, Functional Activities, Functional Mobility,Gait,Pain, Posture,ROM,Soft Tissue Mobility,Strength,Transfers Goals HEP Impairment pt does not have a HEP now Short Term Goal (STG) pt will be compliant to his dialy HEP safely and independently, which allows him to manage his discomfort and increase his flexilibty STG Duration 4 weeks activity tolerance Impairment pt is scared to continue his yard work and weekly running routine. Short Term Goal (STG) pt will be able to initiate his running routine to 2 times /week with 1-2 miles each time without increase in discomfort STG Duration 4weeks Skilled Nursing Goal (LTG) pt will be able to complete his running routine to 3 times /week with 3-4 miles each time without discomfort LTG Duration 8weeks pain Impairment pt has pain at night 7/10 Short Term Goal (STG) pt will have pain no more than 5/10 at night to improve his sleep 3 out of 7 nights. 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 LTG Duration 8 weeks Assessment Summary Assessment Marlo is a 60yo active and healthy male here for his subacute R lateral hip and knee pain started 10 days ago with no known injury. Upon assessment, pt presents signs of R gluteal medius tendinopathy with severe pain with pressure at the tendon which also radiates side of the hip. His hip strength is WFL but notice significant tightness with hamstrings and lateral musculature (+VE for KIRSTEN test). He also presents mild L hip drop during stance phase with RLE which indicates possible motor control/ stability deficits with single leg stance. Pt will benefit from skilled therapy to improve his overall hip mobility, stability and strength in order for him to sleep normally and complete his daily tasks again. Physical Therapy Plan Frequency and Duration Frequency of Treatment 1x/Week Duration of Treatment 8 weeks Plan of Care Start Date 10/03/20 Plan of Care End Date 12/02/20 Therapeutic Interventions Therapeutic Interventions Aquatic Therapy,Balance Training,Gait Training,Home Exercise Program,Joint Mobilizations,Manual Therapy, Neuromuscular Re-education, Patient/Caregiver Education, Self-Care/Home Management,Soft Tissue Mobilization,Taping, Therapeutic Activities, Therapeutic Exercises Modalities Cold Pack/Ice Massage,Electric Stimulation,Hot Packs, Infrared Therapy,Traction- Mechanical,Ultrasound Next Visit Focus/Plan Next Note Type Treatment Note Next Visit Plan review tennis ball release stm at glute med tendon lateral hip line stretch open book stretch hip stability ex Plan of Care Dates Plan of Care Start Date 10/03/20 Plan of Care End Date 12/02/20 Electronically Signed by: Louie Kitchen PT 10/03/20 0507 Please Sign and Return: I have reviewed this Plan of Care and certify that the skilled therapy services above are required to meet the patient?s needs. Physician Signature Date Printed Name and Credentials Clinical Instructor Signature Printed Name and Credentials
--- NOTE | 2020-10-06 16:11 | PT.OTN ---
Current Diagnoses Sciatica, unspecified side (10/06/20) Physical Therapy Treatment Note PT-OP-A Visit Information Start: 10/03/20 12:09 Freq: Status: Active Protocol: Document 10/06/20 15:20 HH (Rec: 10/06/20 16:11 [id number]) Out-Patient Physical Therapy Visit Information Visit Information Visit Type Treatment Note Visit Start Time 15:17 Visit Stop Time 16:00 Total Visit Minutes 43 Visit Number 2/6 Number of ON CALL Visits 0 PT-OP-B Current Condition Start: 10/03/20 12:09 Freq: Status: Active Protocol: Document 10/03/20 12:10 HH (Rec: 10/03/20 12:35 HH [email or web address]) Current Condition History of Current Condition Onset Date 10 days ago Current Complaints R lateral hip pain, radiating pain to lateral knee, difficulty sleeping History of Current Condition Marlo is a 60 active and healthy male here for his new onset of R lateral hip pain with radiating pain to lateral knee started 10 days ago. No known injury. His pain is very severe 11/01 that affects his sleep since then. He has not been able to sleep well and on his R side (pt is a side sleeper). He notices bending over, lying in flat surface tend to aggravate his pain and it comes with some tingling sensation. Standing and walking seem not to bother him as much. 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 PMH includes a hip injury at the same location few years ago from play ice hockey. Future Testing and Treatments Planned pt is currently taking oxycodone and antiinflammatory medications for pain management. Personal Factors Other Personal Factors That May Effect DM II Therapy/Recovery PT-OP-C Subjective Start: 10/03/20 12:09 Freq: Status: Active Protocol: Document 10/06/20 15:20 HH (Rec: 10/06/20 16:11 HH [id number]) OP-PT Subjective Patient Comments Patient Comments I tried to use the tennis ball to massage yesterday and it was killing me the whole day. I couldnt sleep after as well Patient Reported Progress Same PT-OP-D Balance Start: 10/03/20 12:09 Freq: Status: Active Protocol: Document 10/03/20 12:10 HH (Rec: 10/03/20 12:35 [email or web address]) Balance Tests Single Limb Standing Single Limb- Right >20 no deficits noted Single Limb- Left >20 no deficits noted PT-OP-F Manual Assessment Start: 10/03/20 12:09 Freq: Status: Active Protocol: Document 10/03/20 12:10 HH (Rec: 10/03/20 12:35 [email or web address]) Manual Assessments Soft Tissue Assessment Soft Tissue Mobility Assessment significant pain with pressure at gluteus medius tendon above R greater trochanter. moderate discomfort with pressure at R TFL PT-OP-G Mobility & Gait Start: 10/03/20 12:09 Freq: Status: Active Protocol: Document 10/03/20 12:10 HH (Rec: 10/03/20 12:35 [email or web address]) OP Gait Assessment Comments Gait Comments L hip drop noted during R stance phase PT-OP-H Neuro Start: 10/03/20 12:09 Freq: Status: Active Protocol: Document 10/03/20 12:10 HH (Rec: 10/03/20 12:35 [email or web address]) Sensation Evaluation Gross Sensation Gross Sensation WNL Deep Tendon Reflex & Clonus Assessment Deep Tendon Reflex Left Patellar Deep Tendon Reflex 2+ Normal Right Patellar Deep Tendon Reflex 1+ Diminished Bilateral Achilles Deep Tendon Reflex 2+ Normal PT-OP-K Range of Motion Start: 10/03/20 12:09 Freq: Status: Active Protocol: Document 10/03/20 12:10 HH (Rec: 10/03/20 12:35 [email or web address]) Lumbar Spine Range of Motion Lumbar Spine Active Degrees Comments toe touch test= 12.5 inches from the floor. insufficent lumbar flexion and hip flexion SB to R= 22 inches with posterior hip pain on R SB to L= 23 inches without pain Hip Goniometric Range of Motion Hip Left Active Hip ROM WFL No Straight Leg Raise 48 Right Active Hip ROM WFL No Straight Leg Raise 45 PT-OP-L Special Tests Start: 10/03/20 12:09 Freq: Status: Active Protocol: Document 10/03/20 12:10 HH (Rec: 10/03/20 12:35 [email or web address]) Special Tests Lumbar Spine Special Tests quadrant test Test Results pain at posterior hip Comments extension, SB and rot to R Slump Test Results -ve Straight Leg Raise Test Results -ve Hip Special Tests KIRSTEN test Test Results +VE B Comments both LE stay at parallel to table without any adduction. PT-OP-M Strength Start: 10/03/20 12:09 Freq: Status: Active Protocol: Document 10/03/20 12:10 HH (Rec: 10/03/20 12:35 HH [email or web address]) Hip Strength Hip Manual Muscle Testing Right Flexion (L2) 4+ Good+ Extension (S1) 4+ Good+ Abduction 4+ Good+ Adduction 4+ Good+ Left Flexion (L2) 4+ Good+ Extension (S1) 4+ Good+ Abduction 4+ Good+ Adduction 4+ Good+ Knee Strength Knee Manual Muscle Testing Right Flexion (S2) 5 Normal Extension (L3) 5 Normal Left Flexion (S2) 5 Normal Extension (L3) 5 Normal Ankle/Foot Strength Ankle and Foot Manual Muscle Testing Right Dorsiflexion (L4) 5 Normal Plantarflexion (S1) 5 Normal Left Dorsiflexion (L4) 5 Normal Plantarflexion (S1) 5 Normal PT-OP-Q Treatments Start: 10/03/20 12:09 Freq: Status: Active Protocol: Document 10/06/20 15:20 HH (Rec: 10/06/20 16:11 [id number]) Therapeutic Exercises Supine Exercises bridging Side bilateral Reps/Minutes 5 sec hold x 10 Comments for HEP piriformis stretch Side right Reps/Minutes 20 sec stretch x5 Comments for HEP Sitting Exercises hamstring stretch Side bilateral Comments for HEP Standing Exercises IT band stretch Standing Exercise Name tandem stance Side right Reps/Minutes 20 sec x 5 Comments for HEP Manual Therapy Treatment Soft Tissue Mobilization R lateral quad Mobilization Type Myofascial Release,Sustained Pressure,Trigger Point Release Intensity/Depth Superficial Body Position Sidelying glute medius Body Location tendon Mobilization Type Myofascial Release,Sustained Pressure,Trigger Point Release Intensity/Depth Superficial Body Position Sidelying Comments significant pain noted. Joint Mobilizations R hip Joint traction Grade III Body Position Supine Reps/Duration 10 sec hold x8 PT-OP-T Assessment and Plan Start: 10/03/20 12:09 Freq: Status: Active Protocol: Document 10/06/20 15:20 HH (Rec: 10/06/20 16:11 [id number]) Physical Therapy Assessment Goals HEP Impairment pt does not have a HEP now Short Term Goal (STG) pt will be compliant to his dialy HEP safely and independently, which allows him to manage his discomfort and increase his flexilibty STG Duration 4 weeks activity tolerance Impairment pt is scared to continue his yard work and weekly running routine. Short Term Goal (STG) pt will be able to initiate his running routine to 2 times /week with 1-2 miles each time without increase in discomfort STG Duration 4weeks Motor Grader Operator Goal (LTG) pt will be able to complete his running routine to 3 times /week with 3-4 miles each time without discomfort LTG Duration 8weeks pain Impairment pt has pain at night 7/10 Short Term Goal (STG) pt will have pain no more than 5/10 at night to improve his sleep 3 out of 7 nights. STG Duration 4 weeks Motor Grader Operator Goal (LTG) pt will have pain no more than 3/10 at night so he sleep on his R side and maintain good quality of sleep 5 out of 7 nights. LTG Duration 8 weeks Assessment Summary Assessment pt had a flare up yesterday after using the tennis ball to self massage. Pt's TFL/ glute med tendon is highly sensitive to pressure. tx focused on manual therapy and home stretching. Pt mary ann session okay. Physical Therapy Plan Frequency and Duration Frequency of Treatment 1x/Week Duration of Treatment 8 weeks Plan of Care Start Date 10/03/20 Plan of Care End Date 12/02/20 Therapeutic Interventions Therapeutic Interventions Aquatic Therapy,Balance Training,Gait Training,Home Exercise Program,Joint Mobilizations,Manual Therapy, Neuromuscular Re-education, Patient/Caregiver Education, Self-Care/Home Management,Soft Tissue Mobilization,Taping, Therapeutic Activities, Therapeutic Exercises Modalities Cold Pack/Ice Massage,Electric Stimulation,Hot Packs, Infrared Therapy,Traction- Mechanical,Ultrasound Next Visit Focus/Plan Next Note Type Treatment Note Next Visit Plan review tennis ball release stm at glute med tendon lateral hip line stretch open book stretch hip stability ex
--- NOTE | 2020-10-13 11:20 | PT.OTN ---
Current Diagnoses Sciatica, unspecified side (10/13/20) Physical Therapy Treatment Note PT-OP-A Visit Information Start: 10/03/20 12:09 Freq: Status: Active Protocol: Document 10/13/20 09:48 HH (Rec: 10/13/20 11:20 [id number]) Out-Patient Physical Therapy Visit Information Visit Information Visit Type Treatment Note Visit Start Time 10:32 Visit Stop Time 11:15 Total Visit Minutes 43 Visit Number 3/6 Number of TRAVEL MED SURG RN Visits 0 PT-OP-B Current Condition Start: 10/03/20 12:09 Freq: Status: Active Protocol: Document 10/03/20 12:10 HH (Rec: 10/03/20 12:35 HH [email or web address]) Current Condition History of Current Condition Onset Date 10 days ago Current Complaints R lateral hip pain, radiating pain to lateral knee, difficulty sleeping History of Current Condition Marlo is a 60 active and healthy male here for his new onset of R lateral hip pain with radiating pain to lateral knee started 10 days ago. No known injury. His pain is very severe 11/01 that affects his sleep since then. He has not been able to sleep well and on his R side (pt is a side sleeper). He notices bending over, lying in flat surface tend to aggravate his pain and it comes with some tingling sensation. Standing and walking seem not to bother him as much. 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 PMH includes a hip injury at the same location few years ago from play ice hockey. Future Testing and Treatments Planned pt is currently taking oxycodone and antiinflammatory medications for pain management. Personal Factors Other Personal Factors That May Effect DM II Therapy/Recovery PT-OP-C Subjective Start: 10/03/20 12:09 Freq: Status: Active Protocol: Document 10/13/20 09:48 HH (Rec: 10/13/20 11:20 HH [id number]) OP-PT Subjective Patient Comments Patient Comments Im feeling better during the day that i feel less stiff and same with night pain. But i did have severe pain last night. I consulted orthopedist Dr. Hernandez and had an x-ray qwith R hip which is negative for bone fx. And he also believes is IT band syndrome. Patient Reported Progress Improving PT-OP-D Balance Start: 10/03/20 12:09 Freq: Status: Active Protocol: Document 10/03/20 12:10 HH (Rec: 10/03/20 12:35 HH [email or web address]) Balance Tests Single Limb Standing Single Limb- Right >20 no deficits noted Single Limb- Left >20 no deficits noted PT-OP-F Manual Assessment Start: 10/03/20 12:09 Freq: Status: Active Protocol: Document 10/03/20 12:10 HH (Rec: 10/03/20 12:35 HH [email or web address]) Manual Assessments Soft Tissue Assessment Soft Tissue Mobility Assessment significant pain with pressure at gluteus medius tendon above R greater trochanter. moderate discomfort with pressure at R TFL PT-OP-G Mobility & Gait Start: 10/03/20 12:09 Freq: Status: Active Protocol: Document 10/03/20 12:10 HH (Rec: 10/03/20 12:35 HH [email or web address]) OP Gait Assessment Comments Gait Comments L hip drop noted during R stance phase PT-OP-H Neuro Start: 10/03/20 12:09 Freq: Status: Active Protocol: Document 10/03/20 12:10 HH (Rec: 10/03/20 12:35 [email or web address]) Sensation Evaluation Gross Sensation Gross Sensation WNL Deep Tendon Reflex & Clonus Assessment Deep Tendon Reflex Left Patellar Deep Tendon Reflex 2+ Normal Right Patellar Deep Tendon Reflex 1+ Diminished Bilateral Achilles Deep Tendon Reflex 2+ Normal PT-OP-K Range of Motion Start: 10/03/20 12:09 Freq: Status: Active Protocol: Document 10/03/20 12:10 HH (Rec: 10/03/20 12:35 HH [email or web address]) Lumbar Spine Range of Motion Lumbar Spine Active Degrees Comments toe touch test= 12.5 inches from the floor. insufficent lumbar flexion and hip flexion SB to R= 22 inches with posterior hip pain on R SB to L= 23 inches without pain Hip Goniometric Range of Motion Hip Left Active Hip ROM WFL No Straight Leg Raise 48 Right Active Hip ROM WFL No Straight Leg Raise 45 PT-OP-L Special Tests Start: 10/03/20 12:09 Freq: Status: Active Protocol: Document 10/03/20 12:10 HH (Rec: 10/03/20 12:35 HH [email or web address]) Special Tests Lumbar Spine Special Tests quadrant test Test Results pain at posterior hip Comments extension, SB and rot to R Slump Test Results -ve Straight Leg Raise Test Results -ve Hip Special Tests KIRSTEN test Test Results +VE B Comments both LE stay at parallel to table without any adduction. PT-OP-M Strength Start: 10/03/20 12:09 Freq: Status: Active Protocol: Document 10/03/20 12:10 (Rec: 10/03/20 12:35 [email or web address]) Hip Strength Hip Manual Muscle Testing Right Flexion (L2) 4+ Good+ Extension (S1) 4+ Good+ Abduction 4+ Good+ Adduction 4+ Good+ Left Flexion (L2) 4+ Good+ Extension (S1) 4+ Good+ Abduction 4+ Good+ Adduction 4+ Good+ Knee Strength Knee Manual Muscle Testing Right Flexion (S2) 5 Normal Extension (L3) 5 Normal Left Flexion (S2) 5 Normal Extension (L3) 5 Normal Ankle/Foot Strength Ankle and Foot Manual Muscle Testing Right Dorsiflexion (L4) 5 Normal Plantarflexion (S1) 5 Normal Left Dorsiflexion (L4) 5 Normal Plantarflexion (S1) 5 Normal PT-OP-Q Treatments Start: 10/03/20 12:09 Freq: Status: Active Protocol: Document 10/13/20 09:48 (Rec: 10/13/20 11:20 [id number]) Cardio Equipment Bicycle (Upright) Duration (Minutes) 8 Resistance 7 Therapeutic Exercises Supine Exercises rolling pin Supine Exercise Name on R lateral quad Comments for HEP SLR Supine Exercise Name opposite leg bend Reps/Minutes 8x2 figure 4 stretch Side right Reps/Minutes 30 sec x 5 hamstring stretch Side right Reps/Minutes 30 sec x 5 bridging Side bilateral Reps/Minutes 5 sec hold x 10 Comments for HEP piriformis stretch Side right Reps/Minutes 20 sec stretch x5 Comments for HEP Sidelying Exercises IT band stretch Side right Reps/Minutes 20 sec x 4 Comments cues on R lateral weight shift clamshell Reps/Minutes 10 x2 Comments for HEP Manual Therapy Treatment Soft Tissue Mobilization R lateral quad Mobilization Type Myofascial Release,Sustained Pressure,Trigger Point Release Intensity/Depth Superficial Body Position Sidelying glute medius Body Location tendon Mobilization Type Myofascial Release,Sustained Pressure,Trigger Point Release Intensity/Depth Superficial Body Position Sidelying Comments significant pain noted. Joint Mobilizations R hip Joint traction Grade III Body Position Supine Reps/Duration 10 sec hold x8 PT-OP-T Assessment and Plan Start: 10/03/20 12:09 Freq: Status: Active Protocol: Document 10/13/20 09:48 HH (Rec: 10/13/20 11:20 HH [id number]) Physical Therapy Assessment Goals HEP Impairment pt does not have a HEP now Short Term Goal (STG) pt will be compliant to his dialy HEP safely and independently, which allows him to manage his discomfort and increase his flexilibty STG Duration 4 weeks activity tolerance Impairment pt is scared to continue his yard work and weekly running routine. Short Term Goal (STG) pt will be able to initiate his running routine to 2 times /week with 1-2 miles each time without increase in discomfort STG Duration 4weeks Group Home Goal (LTG) pt will be able to complete his running routine to 3 times /week with 3-4 miles each time without discomfort LTG Duration 8weeks pain Impairment pt has pain at night 7/10 Short Term Goal (STG) pt will have pain no more than 5/10 at night to improve his sleep 3 out of 7 nights. STG Duration 4 weeks Focusing Machine Operator Goal (LTG) pt will have pain no more than 3/10 at night so he sleep on his R side and maintain good quality of sleep 5 out of 7 nights. LTG Duration 8 weeks Assessment Summary Assessment Pt overall shows improved pain with less TTP at glute med, TFL and IT band and improved hip mobility. Added clamshell and rolling pin therex to HEP and pt mary ann this session very well. Physical Therapy Plan Frequency and Duration Frequency of Treatment 1x/Week Duration of Treatment 8 weeks Plan of Care Start Date 10/03/20 Plan of Care End Date 12/02/20 Therapeutic Interventions Therapeutic Interventions Aquatic Therapy,Balance Training,Gait Training,Home Exercise Program,Joint Mobilizations,Manual Therapy, Neuromuscular Re-education, Patient/Caregiver Education, Self-Care/Home Management,Soft Tissue Mobilization,Taping, Therapeutic Activities, Therapeutic Exercises Modalities Cold Pack/Ice Massage,Electric Stimulation,Hot Packs, Infrared Therapy,Traction- Mechanical,Ultrasound Next Visit Focus/Plan Next Note Type Treatment Note Next Visit Plan review tennis ball release stm at glute med tendon lateral hip line stretch open book stretch hip stability ex
--- NOTE | 2020-10-21 13:50 | PT.OTN ---
Current Diagnoses Sciatica, unspecified side (10/13/20) Physical Therapy Treatment Note PT-OP-A Visit Information Start: 10/03/20 12:09 Freq: Status: Active Protocol: Document 10/13/20 09:48 HH (Rec: 10/13/20 11:20 [id number]) Out-Patient Physical Therapy Visit Information Visit Information Visit Type Treatment Note Visit Start Time 10:32 Visit Stop Time 11:15 Total Visit Minutes 43 Visit Number 3/6 Number of SALES ROUTE DRIVER Visits 0 PT-OP-B Current Condition Start: 10/03/20 12:09 Freq: Status: Active Protocol: Document 10/03/20 12:10 HH (Rec: 10/03/20 12:35 HH [email or web address]) Current Condition History of Current Condition Onset Date 10 days ago Current Complaints R lateral hip pain, radiating pain to lateral knee, difficulty sleeping History of Current Condition Marlo is a 60 active and healthy male here for his new onset of R lateral hip pain with radiating pain to lateral knee started 10 days ago. No known injury. His pain is very severe 11/01 that affects his sleep since then. He has not been able to sleep well and on his R side (pt is a side sleeper). He notices bending over, lying in flat surface tend to aggravate his pain and it comes with some tingling sensation. Standing and walking seem not to bother him as much. 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 PMH includes a hip injury at the same location few years ago from play ice hockey. Future Testing and Treatments Planned pt is currently taking oxycodone and antiinflammatory medications for pain management. Personal Factors Other Personal Factors That May Effect DM II Therapy/Recovery PT-OP-C Subjective Start: 10/03/20 12:09 Freq: Status: Active Protocol: Document 10/13/20 09:48 HH (Rec: 10/13/20 11:20 HH [id number]) OP-PT Subjective Patient Comments Patient Comments Im feeling better during the day that i feel less stiff and same with night pain. But i did have severe pain last night. I consulted orthopedist Dr. Hernandez and had an x-ray qwith R hip which is negative for bone fx. And he also believes is IT band syndrome. Patient Reported Progress Improving PT-OP-D Balance Start: 10/03/20 12:09 Freq: Status: Active Protocol: Document 10/03/20 12:10 HH (Rec: 10/03/20 12:35 HH [email or web address]) Balance Tests Single Limb Standing Single Limb- Right >20 no deficits noted Single Limb- Left >20 no deficits noted PT-OP-F Manual Assessment Start: 10/03/20 12:09 Freq: Status: Active Protocol: Document 10/03/20 12:10 HH (Rec: 10/03/20 12:35 HH [email or web address]) Manual Assessments Soft Tissue Assessment Soft Tissue Mobility Assessment significant pain with pressure at gluteus medius tendon above R greater trochanter. moderate discomfort with pressure at R TFL PT-OP-G Mobility & Gait Start: 10/03/20 12:09 Freq: Status: Active Protocol: Document 10/03/20 12:10 HH (Rec: 10/03/20 12:35 HH [email or web address]) OP Gait Assessment Comments Gait Comments L hip drop noted during R stance phase PT-OP-H Neuro Start: 10/03/20 12:09 Freq: Status: Active Protocol: Document 10/03/20 12:10 HH (Rec: 10/03/20 12:35 [email or web address]) Sensation Evaluation Gross Sensation Gross Sensation WNL Deep Tendon Reflex & Clonus Assessment Deep Tendon Reflex Left Patellar Deep Tendon Reflex 2+ Normal Right Patellar Deep Tendon Reflex 1+ Diminished Bilateral Achilles Deep Tendon Reflex 2+ Normal PT-OP-K Range of Motion Start: 10/03/20 12:09 Freq: Status: Active Protocol: Document 10/03/20 12:10 HH (Rec: 10/03/20 12:35 HH [email or web address]) Lumbar Spine Range of Motion Lumbar Spine Active Degrees Comments toe touch test= 12.5 inches from the floor. insufficent lumbar flexion and hip flexion SB to R= 22 inches with posterior hip pain on R SB to L= 23 inches without pain Hip Goniometric Range of Motion Hip Left Active Hip ROM WFL No Straight Leg Raise 48 Right Active Hip ROM WFL No Straight Leg Raise 45 PT-OP-L Special Tests Start: 10/03/20 12:09 Freq: Status: Active Protocol: Document 10/03/20 12:10 HH (Rec: 10/03/20 12:35 HH [email or web address]) Special Tests Lumbar Spine Special Tests quadrant test Test Results pain at posterior hip Comments extension, SB and rot to R Slump Test Results -ve Straight Leg Raise Test Results -ve Hip Special Tests KIRSTEN test Test Results +VE B Comments both LE stay at parallel to table without any adduction. PT-OP-M Strength Start: 10/03/20 12:09 Freq: Status: Active Protocol: Document 10/03/20 12:10 (Rec: 10/03/20 12:35 [email or web address]) Hip Strength Hip Manual Muscle Testing Right Flexion (L2) 4+ Good+ Extension (S1) 4+ Good+ Abduction 4+ Good+ Adduction 4+ Good+ Left Flexion (L2) 4+ Good+ Extension (S1) 4+ Good+ Abduction 4+ Good+ Adduction 4+ Good+ Knee Strength Knee Manual Muscle Testing Right Flexion (S2) 5 Normal Extension (L3) 5 Normal Left Flexion (S2) 5 Normal Extension (L3) 5 Normal Ankle/Foot Strength Ankle and Foot Manual Muscle Testing Right Dorsiflexion (L4) 5 Normal Plantarflexion (S1) 5 Normal Left Dorsiflexion (L4) 5 Normal Plantarflexion (S1) 5 Normal PT-OP-Q Treatments Start: 10/03/20 12:09 Freq: Status: Active Protocol: Document 10/13/20 09:48 (Rec: 10/13/20 11:20 [id number]) Cardio Equipment Bicycle (Upright) Duration (Minutes) 8 Resistance 7 Therapeutic Exercises Supine Exercises rolling pin Supine Exercise Name on R lateral quad Comments for HEP SLR Supine Exercise Name opposite leg bend Reps/Minutes 8x2 figure 4 stretch Side right Reps/Minutes 30 sec x 5 hamstring stretch Side right Reps/Minutes 30 sec x 5 bridging Side bilateral Reps/Minutes 5 sec hold x 10 Comments for HEP piriformis stretch Side right Reps/Minutes 20 sec stretch x5 Comments for HEP Sidelying Exercises IT band stretch Side right Reps/Minutes 20 sec x 4 Comments cues on R lateral weight shift clamshell Reps/Minutes 10 x2 Comments for HEP Manual Therapy Treatment Soft Tissue Mobilization R lateral quad Mobilization Type Myofascial Release,Sustained Pressure,Trigger Point Release Intensity/Depth Superficial Body Position Sidelying glute medius Body Location tendon Mobilization Type Myofascial Release,Sustained Pressure,Trigger Point Release Intensity/Depth Superficial Body Position Sidelying Comments significant pain noted. Joint Mobilizations R hip Joint traction Grade III Body Position Supine Reps/Duration 10 sec hold x8 PT-OP-T Assessment and Plan Start: 10/03/20 12:09 Freq: Status: Active Protocol: Document 10/13/20 09:48 HH (Rec: 10/13/20 11:20 HH [id number]) Physical Therapy Assessment Goals HEP Impairment pt does not have a HEP now Short Term Goal (STG) pt will be compliant to his dialy HEP safely and independently, which allows him to manage his discomfort and increase his flexilibty STG Duration 4 weeks activity tolerance Impairment pt is scared to continue his yard work and weekly running routine. Short Term Goal (STG) pt will be able to initiate his running routine to 2 times /week with 1-2 miles each time without increase in discomfort STG Duration 4weeks Prison Goal (LTG) pt will be able to complete his running routine to 3 times /week with 3-4 miles each time without discomfort LTG Duration 8weeks pain Impairment pt has pain at night 7/10 Short Term Goal (STG) pt will have pain no more than 5/10 at night to improve his sleep 3 out of 7 nights. STG Duration 4 weeks Employment Recruiter Goal (LTG) pt will have pain no more than 3/10 at night so he sleep on his R side and maintain good quality of sleep 5 out of 7 nights. LTG Duration 8 weeks Assessment Summary Assessment Pt overall shows improved pain with less TTP at glute med, TFL and IT band and improved hip mobility. Added clamshell and rolling pin therex to HEP and pt mary ann this session very well. Physical Therapy Plan Frequency and Duration Frequency of Treatment 1x/Week Duration of Treatment 8 weeks Plan of Care Start Date 10/03/20 Plan of Care End Date 12/02/20 Therapeutic Interventions Therapeutic Interventions Aquatic Therapy,Balance Training,Gait Training,Home Exercise Program,Joint Mobilizations,Manual Therapy, Neuromuscular Re-education, Patient/Caregiver Education, Self-Care/Home Management,Soft Tissue Mobilization,Taping, Therapeutic Activities, Therapeutic Exercises Modalities Cold Pack/Ice Massage,Electric Stimulation,Hot Packs, Infrared Therapy,Traction- Mechanical,Ultrasound Next Visit Focus/Plan Next Note Type Treatment Note Next Visit Plan review tennis ball release stm at glute med tendon lateral hip line stretch open book stretch hip stability ex
--- NOTE | 2020-10-21 16:10 | PT.OTN ---
Current Diagnoses Sciatica, unspecified side (10/21/20) Physical Therapy Treatment Note PT-OP-A Visit Information Start: 10/03/20 12:09 Freq: Status: Active Protocol: Document 10/21/20 13:15 HH (Rec: 10/21/20 16:10 [id number]) Out-Patient Physical Therapy Visit Information Visit Information Visit Type Treatment Note Visit Start Time 14:33 Visit Stop Time 15:15 Total Visit Minutes 42 Visit Number 4/6 Number of OVEN UNLOADER Visits 0 PT-OP-B Current Condition Start: 10/03/20 12:09 Freq: Status: Active Protocol: Document 10/03/20 12:10 HH (Rec: 10/03/20 12:35 HH [email or web address]) Current Condition History of Current Condition Onset Date 10 days ago Current Complaints R lateral hip pain, radiating pain to lateral knee, difficulty sleeping History of Current Condition Marlo is a 60 active and healthy male here for his new onset of R lateral hip pain with radiating pain to lateral knee started 10 days ago. No known injury. His pain is very severe 7/10 that affects his sleep since then. He has not been able to sleep well and on his R side (pt is a side sleeper). He notices bending over, lying in flat surface tend to aggravate his pain and it comes with some tingling sensation. Standing and walking seem not to bother him as much. 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 PMH includes a hip injury at the same location few years ago from play ice hockey. Future Testing and Treatments Planned pt is currently taking oxycodone and antiinflammatory medications for pain management. Personal Factors Other Personal Factors That May Effect DM II Therapy/Recovery PT-OP-C Subjective Start: 10/03/20 12:09 Freq: Status: Active Protocol: Document 10/21/20 13:15 HH (Rec: 10/21/20 16:10 [id number]) OP-PT Subjective Patient Comments Patient Comments my pain is always the worst in the morning. My pain is around 5/10. The more i walk the better it is. Im still unable to sleep without pain pill (oxycodone) but oralia been taking it less. Patient Reported Progress Improving PT-OP-D Balance Start: 10/03/20 12:09 Freq: Status: Active Protocol: Document 10/03/20 12:10 HH (Rec: 10/03/20 12:35 HH [email or web address]) Balance Tests Single Limb Standing Single Limb- Right >20 no deficits noted Single Limb- Left >20 no deficits noted PT-OP-F Manual Assessment Start: 10/03/20 12:09 Freq: Status: Active Protocol: Document 10/03/20 12:10 HH (Rec: 10/03/20 12:35 HH [email or web address]) Manual Assessments Soft Tissue Assessment Soft Tissue Mobility Assessment significant pain with pressure at gluteus medius tendon above R greater trochanter. moderate discomfort with pressure at R TFL PT-OP-G Mobility & Gait Start: 10/03/20 12:09 Freq: Status: Active Protocol: Document 10/03/20 12:10 HH (Rec: 10/03/20 12:35 HH [email or web address]) OP Gait Assessment Comments Gait Comments L hip drop noted during R stance phase PT-OP-H Neuro Start: 10/03/20 12:09 Freq: Status: Active Protocol: Document 10/03/20 12:10 HH (Rec: 10/03/20 12:35 [email or web address]) Sensation Evaluation Gross Sensation Gross Sensation WNL Deep Tendon Reflex & Clonus Assessment Deep Tendon Reflex Left Patellar Deep Tendon Reflex 2+ Normal Right Patellar Deep Tendon Reflex 1+ Diminished Bilateral Achilles Deep Tendon Reflex 2+ Normal PT-OP-K Range of Motion Start: 10/03/20 12:09 Freq: Status: Active Protocol: Document 10/03/20 12:10 HH (Rec: 10/03/20 12:35 HH [email or web address]) Lumbar Spine Range of Motion Lumbar Spine Active Degrees Comments toe touch test= 12.5 inches from the floor. insufficent lumbar flexion and hip flexion SB to R= 22 inches with posterior hip pain on R SB to L= 23 inches without pain Hip Goniometric Range of Motion Hip Left Active Hip ROM WFL No Straight Leg Raise 48 Right Active Hip ROM WFL No Straight Leg Raise 45 PT-OP-L Special Tests Start: 10/03/20 12:09 Freq: Status: Active Protocol: Document 10/03/20 12:10 HH (Rec: 10/03/20 12:35 HH [email or web address]) Special Tests Lumbar Spine Special Tests quadrant test Test Results pain at posterior hip Comments extension, SB and rot to R Slump Test Results -ve Straight Leg Raise Test Results -ve Hip Special Tests KIRSTEN test Test Results +VE B Comments both LE stay at parallel to table without any adduction. PT-OP-M Strength Start: 10/03/20 12:09 Freq: Status: Active Protocol: Document 10/03/20 12:10 HH (Rec: 10/03/20 12:35 HH [email or web address]) Hip Strength Hip Manual Muscle Testing Right Flexion (L2) 4+ Good+ Extension (S1) 4+ Good+ Abduction 4+ Good+ Adduction 4+ Good+ Left Flexion (L2) 4+ Good+ Extension (S1) 4+ Good+ Abduction 4+ Good+ Adduction 4+ Good+ Knee Strength Knee Manual Muscle Testing Right Flexion (S2) 5 Normal Extension (L3) 5 Normal Left Flexion (S2) 5 Normal Extension (L3) 5 Normal Ankle/Foot Strength Ankle and Foot Manual Muscle Testing Right Dorsiflexion (L4) 5 Normal Plantarflexion (S1) 5 Normal Left Dorsiflexion (L4) 5 Normal Plantarflexion (S1) 5 Normal PT-OP-Q Treatments Start: 10/03/20 12:09 Freq: Status: Active Protocol: Document 10/21/20 13:15 HH (Rec: 10/21/20 16:10 HH [id number]) Cardio Equipment Bicycle (Upright) Duration (Minutes) 8 Resistance 7 Therapeutic Exercises Supine Exercises dayron stretch Side right Equipment Used towel on R ankle, L knee to chest Reps/Minutes 20 sec x 5 rolling pin Supine Exercise Name on R lateral quad Comments for HEP bridging Side bilateral Equipment Used red band at knees Reps/Minutes 5 sec hold x 10 Comments for HEP, no discomfort noted. Prone Exercises quad and hip flexors stretch Prone Exercise Name PT assisted. Side bilateral Sidelying Exercises IT band stretch Side right Reps/Minutes 20 sec x 4 Comments cues on R lateral weight shift Standing Exercises donkey kick Reps/Minutes 5x 2 Comments unable to facilitate hip extensors d/t limited hip extension tennis ball Comments recommend him to attempt soft tissue release at glute med again at home Manual Therapy Treatment Soft Tissue Mobilization R lateral quad Mobilization Type Myofascial Release,Sustained Pressure,Trigger Point Release Intensity/Depth Superficial Body Position Sidelying glute medius Body Location tendon Mobilization Type Myofascial Release,Sustained Pressure,Trigger Point Release Intensity/Depth Superficial Body Position Sidelying Comments reduced pain noted. Joint Mobilizations R hip Joint traction Grade III Body Position Supine Reps/Duration 10 sec hold x8 PT-OP-T Assessment and Plan Start: 10/03/20 12:09 Freq: Status: Active Protocol: Document 10/21/20 13:15 HH (Rec: 10/21/20 16:10 HH [id number]) Physical Therapy Assessment Goals HEP Impairment pt does not have a HEP now Short Term Goal (STG) pt will be compliant to his dialy HEP safely and independently, which allows him to manage his discomfort and increase his flexilibty STG Duration 4 weeks activity tolerance Impairment pt is scared to continue his yard work and weekly running routine. Short Term Goal (STG) pt will be able to initiate his running routine to 2 times /week with 1-2 miles each time without increase in discomfort STG Duration 4weeks Alf Goal (LTG) pt will be able to complete his running routine to 3 times /week with 3-4 miles each time without discomfort LTG Duration 8weeks pain Impairment pt has pain at night 7/10 Short Term Goal (STG) pt will have pain no more than 5/10 at night to improve his sleep 3 out of 7 nights. STG Duration 4 weeks Preassembler And Inspector Goal (LTG) pt will have pain no more than 3/10 at night so he sleep on his R side and maintain good quality of sleep 5 out of 7 nights. LTG Duration 8 weeks Assessment Summary Assessment I noticed pt has very poor hip extension flexiblity which drives him to weight shift laterally and rotate his hip more during gait. Added hip flexors stretch and bridging for HEP Physical Therapy Plan Frequency and Duration Frequency of Treatment 1x/Week Duration of Treatment 8 weeks Plan of Care Start Date 10/03/20 Plan of Care End Date 12/02/20 Therapeutic Interventions Therapeutic Interventions Aquatic Therapy,Balance Training,Gait Training,Home Exercise Program,Joint Mobilizations,Manual Therapy, Neuromuscular Re-education, Patient/Caregiver Education, Self-Care/Home Management,Soft Tissue Mobilization,Taping, Therapeutic Activities, Therapeutic Exercises Modalities Cold Pack/Ice Massage,Electric Stimulation,Hot Packs, Infrared Therapy,Traction- Mechanical,Ultrasound Next Visit Focus/Plan Next Note Type Treatment Note Next Visit Plan review tennis ball release stm at glute med tendon lateral hip line stretch open book stretch hip stability ex
--- NOTE | 2020-10-30 09:49 | PT.OTN ---
Current Diagnoses Sciatica, unspecified side (10/30/20) Physical Therapy Treatment Note PT-OP-A Visit Information Start: 10/03/20 12:09 Freq: Status: Active Protocol: Document 10/30/20 08:59 HH (Rec: 10/30/20 09:49 [id number]) Out-Patient Physical Therapy Visit Information Visit Information Visit Type Treatment Note Visit Start Time 09:03 Visit Stop Time 09:45 Total Visit Minutes 42 Visit Number 5/6 Number of CUSTOMER CONSULTANT Visits 0 PT-OP-B Current Condition Start: 10/03/20 12:09 Freq: Status: Active Protocol: Document 10/03/20 12:10 HH (Rec: 10/03/20 12:35 HH [email or web address]) Current Condition History of Current Condition Onset Date 10 days ago Current Complaints R lateral hip pain, radiating pain to lateral knee, difficulty sleeping History of Current Condition Marlo is a 60 active and healthy male here for his new onset of R lateral hip pain with radiating pain to lateral knee started 10 days ago. No known injury. His pain is very severe 7/10 that affects his sleep since then. He has not been able to sleep well and on his R side (pt is a side sleeper). He notices bending over, lying in flat surface tend to aggravate his pain and it comes with some tingling sensation. Standing and walking seem not to bother him as much. 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 PMH includes a hip injury at the same location few years ago from play ice hockey. Future Testing and Treatments Planned pt is currently taking oxycodone and antiinflammatory medications for pain management. Personal Factors Other Personal Factors That May Effect DM II Therapy/Recovery PT-OP-C Subjective Start: 10/03/20 12:09 Freq: Status: Active Protocol: Document 10/30/20 08:59 HH (Rec: 10/30/20 09:49 HH [id number]) OP-PT Subjective Patient Comments Patient Comments My pain in the morning is still a 5/10. Everything is still around the same. I went on biking on tuesday and that night really hurt me. Patient Reported Progress Same PT-OP-D Balance Start: 10/03/20 12:09 Freq: Status: Active Protocol: Document 10/03/20 12:10 HH (Rec: 10/03/20 12:35 [email or web address]) Balance Tests Single Limb Standing Single Limb- Right >20 no deficits noted Single Limb- Left >20 no deficits noted PT-OP-F Manual Assessment Start: 10/03/20 12:09 Freq: Status: Active Protocol: Document 10/03/20 12:10 HH (Rec: 10/03/20 12:35 [email or web address]) Manual Assessments Soft Tissue Assessment Soft Tissue Mobility Assessment significant pain with pressure at gluteus medius tendon above R greater trochanter. moderate discomfort with pressure at R TFL PT-OP-G Mobility & Gait Start: 10/03/20 12:09 Freq: Status: Active Protocol: Document 10/03/20 12:10 HH (Rec: 10/03/20 12:35 [email or web address]) OP Gait Assessment Comments Gait Comments L hip drop noted during R stance phase PT-OP-H Neuro Start: 10/03/20 12:09 Freq: Status: Active Protocol: Document 10/03/20 12:10 HH (Rec: 10/03/20 12:35 [email or web address]) Sensation Evaluation Gross Sensation Gross Sensation WNL Deep Tendon Reflex & Clonus Assessment Deep Tendon Reflex Left Patellar Deep Tendon Reflex 2+ Normal Right Patellar Deep Tendon Reflex 1+ Diminished Bilateral Achilles Deep Tendon Reflex 2+ Normal PT-OP-K Range of Motion Start: 10/03/20 12:09 Freq: Status: Active Protocol: Document 10/03/20 12:10 HH (Rec: 10/03/20 12:35 [email or web address]) Lumbar Spine Range of Motion Lumbar Spine Active Degrees Comments toe touch test= 12.5 inches from the floor. insufficent lumbar flexion and hip flexion SB to R= 22 inches with posterior hip pain on R SB to L= 23 inches without pain Hip Goniometric Range of Motion Hip Left Active Hip ROM WFL No Straight Leg Raise 48 Right Active Hip ROM WFL No Straight Leg Raise 45 PT-OP-L Special Tests Start: 10/03/20 12:09 Freq: Status: Active Protocol: Document 10/03/20 12:10 HH (Rec: 10/03/20 12:35 [email or web address]) Special Tests Lumbar Spine Special Tests quadrant test Test Results pain at posterior hip Comments extension, SB and rot to R Slump Test Results -ve Straight Leg Raise Test Results -ve Hip Special Tests KIRSTEN test Test Results +VE B Comments both LE stay at parallel to table without any adduction. PT-OP-M Strength Start: 10/03/20 12:09 Freq: Status: Active Protocol: Document 10/03/20 12:10 HH (Rec: 10/03/20 12:35 HH [email or web address]) Hip Strength Hip Manual Muscle Testing Right Flexion (L2) 4+ Good+ Extension (S1) 4+ Good+ Abduction 4+ Good+ Adduction 4+ Good+ Left Flexion (L2) 4+ Good+ Extension (S1) 4+ Good+ Abduction 4+ Good+ Adduction 4+ Good+ Knee Strength Knee Manual Muscle Testing Right Flexion (S2) 5 Normal Extension (L3) 5 Normal Left Flexion (S2) 5 Normal Extension (L3) 5 Normal Ankle/Foot Strength Ankle and Foot Manual Muscle Testing Right Dorsiflexion (L4) 5 Normal Plantarflexion (S1) 5 Normal Left Dorsiflexion (L4) 5 Normal Plantarflexion (S1) 5 Normal PT-OP-Q Treatments Start: 10/03/20 12:09 Freq: Status: Active Protocol: Document 10/30/20 08:59 HH (Rec: 10/30/20 09:49 HH [id number]) Cardio Equipment Bicycle (Upright) Duration (Minutes) 8 Resistance 7 Therapeutic Exercises Supine Exercises dayron stretch Side right Equipment Used towel on R ankle, L knee to chest Reps/Minutes 20 sec x 5 rolling pin Supine Exercise Name R hip adductors Comments for HEP figure 4 stretch Side right Reps/Minutes 30 sec x 5 piriformis stretch Side right Reps/Minutes 20 sec stretch x5 Comments for HEP Prone Exercises prone hip extension Prone Exercise Name unilateral hip extension Reps/Minutes 8 x2 Comments for HEP Manual Therapy Treatment Soft Tissue Mobilization hip flexor Mobilization Type Sustained Pressure,Trigger Point Release Intensity/Depth Moderate Body Position Supine R lateral quad Mobilization Type Myofascial Release,Sustained Pressure,Trigger Point Release Intensity/Depth Superficial Body Position Sidelying Comments increased tonicity noted. glute medius Body Location tendon Mobilization Type Myofascial Release,Sustained Pressure,Trigger Point Release Intensity/Depth Superficial Body Position Sidelying Comments reduced pain noted. Joint Mobilizations R hip Joint traction Grade III Body Position Supine Reps/Duration 10 sec hold x8 PT-OP-T Assessment and Plan Start: 10/03/20 12:09 Freq: Status: Active Protocol: Document 10/30/20 08:59 (Rec: 10/30/20 09:49 [id number]) Physical Therapy Assessment Goals HEP Impairment pt does not have a HEP now Short Term Goal (STG) pt will be compliant to his dialy HEP safely and independently, which allows him to manage his discomfort and increase his flexilibty STG Duration 4 weeks activity tolerance Impairment pt is scared to continue his yard work and weekly running routine. Short Term Goal (STG) pt will be able to initiate his running routine to 2 times /week with 1-2 miles each time without increase in discomfort STG Duration 4weeks Mcc Goal (LTG) pt will be able to complete his running routine to 3 times /week with 3-4 miles each time without discomfort LTG Duration 8weeks pain Impairment pt has pain at night 7/10 Short Term Goal (STG) pt will have pain no more than 5/10 at night to improve his sleep 3 out of 7 nights. STG Duration 4 weeks Design Maker Goal (LTG) pt will have pain no more than 3/10 at night so he sleep on his R side and maintain good quality of sleep 5 out of 7 nights. LTG Duration 8 weeks Assessment Summary Assessment pt reports increased symptoms after biking on tuesday. However, pt forgot how to do dayron stretch and needed revision on his hip stretches today. Consolidated his HEP today with focus on hip flexiblity. Physical Therapy Plan Frequency and Duration Frequency of Treatment 1x/Week Duration of Treatment 8 weeks Plan of Care Start Date 10/03/20 Plan of Care End Date 12/02/20 Therapeutic Interventions Therapeutic Interventions Aquatic Therapy,Balance Training,Gait Training,Home Exercise Program,Joint Mobilizations,Manual Therapy, Neuromuscular Re-education, Patient/Caregiver Education, Self-Care/Home Management,Soft Tissue Mobilization,Taping, Therapeutic Activities, Therapeutic Exercises Modalities Cold Pack/Ice Massage,Electric Stimulation,Hot Packs, Infrared Therapy,Traction- Mechanical,Ultrasound Next Visit Focus/Plan Next Note Type Treatment Note Next Visit Plan review tennis ball release stm at glute med tendon lateral hip line stretch open book stretch hip stability ex
--- NOTE | 2020-11-05 10:42 | PT.OTN ---
Current Diagnoses Sciatica, unspecified side (11/05/20) Physical Therapy Treatment Note PT-OP-A Visit Information Start: 10/03/20 12:09 Freq: Status: Active Protocol: Document 11/05/20 09:05 (Rec: 11/05/20 10:42 [id number]) Out-Patient Physical Therapy Visit Information Visit Information Visit Type Treatment Note Visit Stop Time 09:45 Total Visit Minutes 42 Visit Number 5/6 Number of GAS EXAMINER Visits 0 PT-OP-B Current Condition Start: 10/03/20 12:09 Freq: Status: Active Protocol: Document 10/03/20 12:10 HH (Rec: 10/03/20 12:35 [email or web address]) Current Condition History of Current Condition Onset Date 10 days ago Current Complaints R lateral hip pain, radiating pain to lateral knee, difficulty sleeping History of Current Condition Marlo is a 60 active and healthy male here for his new onset of R lateral hip pain with radiating pain to lateral knee started 10 days ago. No known injury. His pain is very severe 11/01 that affects his sleep since then. He has not been able to sleep well and on his R side (pt is a side sleeper). He notices bending over, lying in flat surface tend to aggravate his pain and it comes with some tingling sensation. Standing and walking seem not to bother him as much. 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 PMH includes a hip injury at the same location few years ago from play ice hockey. Future Testing and Treatments Planned terra is currently taking oxycodone and antiinflammatory medications for pain management. Personal Factors Other Personal Factors That May Effect DM II Therapy/Recovery PT-OP-C Subjective Start: 10/03/20 12:09 Freq: Status: Active Protocol: Document 11/05/20 09:05 (Rec: 11/05/20 10:42 [id number]) OP-PT Subjective Patient Comments Patient Comments I had a really sharp pain from my R buttock all the way down to my side of the knee this weekend. Im better today. Patient Reported Progress Same PT-OP-D Balance Start: 10/03/20 12:09 Freq: Status: Active Protocol: Document 10/03/20 12:10 HH (Rec: 10/03/20 12:35 [email or web address]) Balance Tests Single Limb Standing Single Limb- Right >20 no deficits noted Single Limb- Left >20 no deficits noted PT-OP-F Manual Assessment Start: 10/03/20 12:09 Freq: Status: Active Protocol: Document 10/03/20 12:10 HH (Rec: 10/03/20 12:35 [email or web address]) Manual Assessments Soft Tissue Assessment Soft Tissue Mobility Assessment significant pain with pressure at gluteus medius tendon above R greater trochanter. moderate discomfort with pressure at R TFL PT-OP-G Mobility & Gait Start: 10/03/20 12:09 Freq: Status: Active Protocol: Document 10/03/20 12:10 HH (Rec: 10/03/20 12:35 [email or web address]) OP Gait Assessment Comments Gait Comments L hip drop noted during R stance phase PT-OP-H Neuro Start: 10/03/20 12:09 Freq: Status: Active Protocol: Document 10/03/20 12:10 HH (Rec: 10/03/20 12:35 [email or web address]) Sensation Evaluation Gross Sensation Gross Sensation WNL Deep Tendon Reflex & Clonus Assessment Deep Tendon Reflex Left Patellar Deep Tendon Reflex 2+ Normal Right Patellar Deep Tendon Reflex 1+ Diminished Bilateral Achilles Deep Tendon Reflex 2+ Normal PT-OP-K Range of Motion Start: 10/03/20 12:09 Freq: Status: Active Protocol: Document 10/03/20 12:10 HH (Rec: 10/03/20 12:35 [email or web address]) Lumbar Spine Range of Motion Lumbar Spine Active Degrees Comments toe touch test= 12.5 inches from the floor. insufficent lumbar flexion and hip flexion SB to R= 22 inches with posterior hip pain on R SB to L= 23 inches without pain Hip Goniometric Range of Motion Hip Left Active Hip ROM WFL No Straight Leg Raise 48 Right Active Hip ROM WFL No Straight Leg Raise 45 PT-OP-L Special Tests Start: 10/03/20 12:09 Freq: Status: Active Protocol: Document 10/03/20 12:10 HH (Rec: 10/03/20 12:35 [email or web address]) Special Tests Lumbar Spine Special Tests quadrant test Test Results pain at posterior hip Comments extension, SB and rot to R Slump Test Results -ve Straight Leg Raise Test Results -ve Hip Special Tests KIRSTEN test Test Results +VE B Comments both LE stay at parallel to table without any adduction. PT-OP-M Strength Start: 10/03/20 12:09 Freq: Status: Active Protocol: Document 10/03/20 12:10 (Rec: 10/03/20 12:35 [email or web address]) Hip Strength Hip Manual Muscle Testing Right Flexion (L2) 4+ Good+ Extension (S1) 4+ Good+ Abduction 4+ Good+ Adduction 4+ Good+ Left Flexion (L2) 4+ Good+ Extension (S1) 4+ Good+ Abduction 4+ Good+ Adduction 4+ Good+ Knee Strength Knee Manual Muscle Testing Right Flexion (S2) 5 Normal Extension (L3) 5 Normal Left Flexion (S2) 5 Normal Extension (L3) 5 Normal Ankle/Foot Strength Ankle and Foot Manual Muscle Testing Right Dorsiflexion (L4) 5 Normal Plantarflexion (S1) 5 Normal Left Dorsiflexion (L4) 5 Normal Plantarflexion (S1) 5 Normal PT-OP-Q Treatments Start: 10/03/20 12:09 Freq: Status: Active Protocol: Document 11/05/20 09:05 (Rec: 11/05/20 10:42 [id number]) Therapeutic Exercises Supine Exercises dayron stretch Side right Equipment Used PT assisted Reps/Minutes 8 mins Comments cues on preventing hip abduction. Prone Exercises prone hip extension Prone Exercise Name unilateral hip extension Reps/Minutes 8 x2 Comments for HEP Manual Therapy Treatment Soft Tissue Mobilization hip flexor Mobilization Type Sustained Pressure,Trigger Point Release Intensity/Depth Moderate Body Position Supine R lateral quad Body Location and distal IT band Mobilization Type Myofascial Release,Sustained Pressure,Trigger Point Release Intensity/Depth Superficial Body Position Sidelying Comments increased tonicity noted. glute medius Body Location tendon Mobilization Type Myofascial Release,Sustained Pressure,Trigger Point Release Intensity/Depth Superficial Body Position Sidelying Comments reduced tonicity noted. Joint Mobilizations R hip Joint traction Grade III Body Position Supine Reps/Duration 10 sec hold x8 PT-OP-T Assessment and Plan Start: 10/03/20 12:09 Freq: Status: Active Protocol: Document 11/05/20 09:05 (Rec: 11/05/20 10:42 [id number]) Physical Therapy Assessment Goals HEP Impairment pt does not have a HEP now Short Term Goal (STG) pt will be compliant to his dialy HEP safely and independently, which allows him to manage his discomfort and increase his flexilibty STG Duration 4 weeks activity tolerance Impairment pt is scared to continue his yard work and weekly running routine. Short Term Goal (STG) pt will be able to initiate his running routine to 2 times /week with 1-2 miles each time without increase in discomfort STG Duration 4weeks Assisted Goal (LTG) pt will be able to complete his running routine to 3 times /week with 3-4 miles each time without discomfort LTG Duration 8weeks pain Impairment pt has pain at night 7/10 Short Term Goal (STG) pt will have pain no more than 5/10 at night to improve his sleep 3 out of 7 nights. STG Duration 4 weeks Assisted Goal (LTG) pt will have pain no more than 3/10 at night so he sleep on his R side and maintain good quality of sleep 5 out of 7 nights. LTG Duration 8 weeks Assessment Summary Assessment pt reports having a flare up this weekend but it has gotten better now. Reviewed dayron stretch with him and pull his RLE into hip abduction which reproduce his R lateral knee pain. Spent time correcting his stretching mechanics and manual therapy on hip flexors. His pain is gone at the end of session. Will have to review hip flexor stretch with him again next visit. Physical Therapy Plan Frequency and Duration Frequency of Treatment 1x/Week Duration of Treatment 8 weeks Plan of Care Start Date 10/03/20 Plan of Care End Date 12/02/20 Therapeutic Interventions Therapeutic Interventions Aquatic Therapy,Balance Training,Gait Training,Home Exercise Program,Joint Mobilizations,Manual Therapy, Neuromuscular Re-education, Patient/Caregiver Education, Self-Care/Home Management,Soft Tissue Mobilization,Taping, Therapeutic Activities, Therapeutic Exercises Modalities Cold Pack/Ice Massage,Electric Stimulation,Hot Packs, Infrared Therapy,Traction- Mechanical,Ultrasound Next Visit Focus/Plan Next Note Type Treatment Note Next Visit Plan review tennis ball release stm at glute med tendon lateral hip line stretch open book stretch hip stability ex
--- NOTE | 2020-11-13 15:39 | PT.OTN ---
Current Diagnoses Sciatica, unspecified side (11/13/20) Physical Therapy Treatment Note PT-OP-A Visit Information Start: 10/03/20 12:09 Freq: Status: Active Protocol: Document 11/13/20 13:47 HH (Rec: 11/13/20 15:39 [id number]) Out-Patient Physical Therapy Visit Information Visit Information Visit Type Treatment Note Visit Start Time 13:47 Visit Stop Time 14:30 Total Visit Minutes 43 Visit Number 6/6 Number of EXHAUST AND MUFFLER FITTER Visits 0 PT-OP-B Current Condition Start: 10/03/20 12:09 Freq: Status: Active Protocol: Document 10/03/20 12:10 HH (Rec: 10/03/20 12:35 HH [email or web address]) Current Condition History of Current Condition Onset Date 10 days ago Current Complaints R lateral hip pain, radiating pain to lateral knee, difficulty sleeping History of Current Condition Marlo is a 60 active and healthy male here for his new onset of R lateral hip pain with radiating pain to lateral knee started 10 days ago. No known injury. His pain is very severe 11/01 that affects his sleep since then. He has not been able to sleep well and on his R side (pt is a side sleeper). He notices bending over, lying in flat surface tend to aggravate his pain and it comes with some tingling sensation. Standing and walking seem not to bother him as much. 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 PMH includes a hip injury at the same location few years ago from play ice hockey. Future Testing and Treatments Planned pt is currently taking oxycodone and antiinflammatory medications for pain management. Personal Factors Other Personal Factors That May Effect DM II Therapy/Recovery PT-OP-C Subjective Start: 10/03/20 12:09 Freq: Status: Active Protocol: Document 11/13/20 13:47 HH (Rec: 11/13/20 15:39 HH [id number]) OP-PT Subjective Patient Comments Patient Comments Im getting better and im able to sleep better now since last visit. Patient Reported Progress Improving PT-OP-D Balance Start: 10/03/20 12:09 Freq: Status: Active Protocol: Document 10/03/20 12:10 HH (Rec: 10/03/20 12:35 HH [email or web address]) Balance Tests Single Limb Standing Single Limb- Right >20 no deficits noted Single Limb- Left >20 no deficits noted PT-OP-F Manual Assessment Start: 10/03/20 12:09 Freq: Status: Active Protocol: Document 10/03/20 12:10 HH (Rec: 10/03/20 12:35 [email or web address]) Manual Assessments Soft Tissue Assessment Soft Tissue Mobility Assessment significant pain with pressure at gluteus medius tendon above R greater trochanter. moderate discomfort with pressure at R TFL PT-OP-G Mobility & Gait Start: 10/03/20 12:09 Freq: Status: Active Protocol: Document 10/03/20 12:10 HH (Rec: 10/03/20 12:35 [email or web address]) OP Gait Assessment Comments Gait Comments L hip drop noted during R stance phase PT-OP-H Neuro Start: 10/03/20 12:09 Freq: Status: Active Protocol: Document 10/03/20 12:10 HH (Rec: 10/03/20 12:35 [email or web address]) Sensation Evaluation Gross Sensation Gross Sensation WNL Deep Tendon Reflex & Clonus Assessment Deep Tendon Reflex Left Patellar Deep Tendon Reflex 2+ Normal Right Patellar Deep Tendon Reflex 1+ Diminished Bilateral Achilles Deep Tendon Reflex 2+ Normal PT-OP-K Range of Motion Start: 10/03/20 12:09 Freq: Status: Active Protocol: Document 10/03/20 12:10 HH (Rec: 10/03/20 12:35 [email or web address]) Lumbar Spine Range of Motion Lumbar Spine Active Degrees Comments toe touch test= 12.5 inches from the floor. insufficent lumbar flexion and hip flexion SB to R= 22 inches with posterior hip pain on R SB to L= 23 inches without pain Hip Goniometric Range of Motion Hip Left Active Hip ROM WFL No Straight Leg Raise 48 Right Active Hip ROM WFL No Straight Leg Raise 45 PT-OP-L Special Tests Start: 10/03/20 12:09 Freq: Status: Active Protocol: Document 10/03/20 12:10 HH (Rec: 10/03/20 12:35 [email or web address]) Special Tests Lumbar Spine Special Tests quadrant test Test Results pain at posterior hip Comments extension, SB and rot to R Slump Test Results -ve Straight Leg Raise Test Results -ve Hip Special Tests KIRSTEN test Test Results +VE B Comments both LE stay at parallel to table without any adduction. PT-OP-M Strength Start: 10/03/20 12:09 Freq: Status: Active Protocol: Document 10/03/20 12:10 HH (Rec: 10/03/20 12:35 HH [email or web address]) Hip Strength Hip Manual Muscle Testing Right Flexion (L2) 4+ Good+ Extension (S1) 4+ Good+ Abduction 4+ Good+ Adduction 4+ Good+ Left Flexion (L2) 4+ Good+ Extension (S1) 4+ Good+ Abduction 4+ Good+ Adduction 4+ Good+ Knee Strength Knee Manual Muscle Testing Right Flexion (S2) 5 Normal Extension (L3) 5 Normal Left Flexion (S2) 5 Normal Extension (L3) 5 Normal Ankle/Foot Strength Ankle and Foot Manual Muscle Testing Right Dorsiflexion (L4) 5 Normal Plantarflexion (S1) 5 Normal Left Dorsiflexion (L4) 5 Normal Plantarflexion (S1) 5 Normal PT-OP-Q Treatments Start: 10/03/20 12:09 Freq: Status: Active Protocol: Document 11/13/20 13:47 HH (Rec: 11/13/20 15:39 [id number]) Cardio Equipment Bicycle (Upright) Duration (Minutes) 8 Resistance 7 Other cues to prevent R knee valgus Gym Equipment Shuttle Recovery SL squat Resistance 37-50# Shuttle Recovery Platform Stable Reps/Time cue son preventing knee valgus Therapeutic Exercises Supine Exercises dayron stretch Supine Exercise Name review with pt Side right Equipment Used PT assisted Reps/Minutes 8 mins figure 4 stretch Side right Reps/Minutes 30 sec x 5 bridging Side bilateral Comments cues on preventing knee valgus Manual Therapy Treatment Soft Tissue Mobilization hip flexor Mobilization Type Sustained Pressure,Trigger Point Release Intensity/Depth Moderate Body Position Supine R lateral quad Body Location and distal IT band Mobilization Type Myofascial Release,Sustained Pressure,Trigger Point Release Intensity/Depth Superficial Body Position Sidelying Comments increased tonicity noted. PT-OP-T Assessment and Plan Start: 10/03/20 12:09 Freq: Status: Active Protocol: Document 11/13/20 13:47 HH (Rec: 11/13/20 15:39 [id number]) Physical Therapy Assessment Goals HEP Impairment pt does not have a HEP now Short Term Goal (STG) pt will be compliant to his dialy HEP safely and independently, which allows him to manage his discomfort and increase his flexilibty STG Duration 4 weeks activity tolerance Impairment pt is scared to continue his yard work and weekly running routine. Short Term Goal (STG) pt will be able to initiate his running routine to 2 times /week with 1-2 miles each time without increase in discomfort STG Duration 4weeks Bicycle Repairman Goal (LTG) pt will be able to complete his running routine to 3 times /week with 3-4 miles each time without discomfort LTG Duration 8weeks pain Impairment pt has pain at night 7/10 Short Term Goal (STG) pt will have pain no more than 5/10 at night to improve his sleep 3 out of 7 nights. STG Duration 4 weeks Bicycle Repairman Goal (LTG) pt will have pain no more than 3/10 at night so he sleep on his R side and maintain good quality of sleep 5 out of 7 nights. LTG Duration 8 weeks Assessment Summary Assessment pt shows improvements since last visit. He is able to execute dayron stretch accurately. Spent time on educating pt's hip and knee alignment during WB activities since he tends to ADD/IR his R hip which place pressure at IT band. Pt's insurance coverage has used up but i will contact him in a few weeks to follow up. Physical Therapy Plan Frequency and Duration Frequency of Treatment 1x/Week Duration of Treatment 8 weeks Plan of Care Start Date 10/03/20 Plan of Care End Date 12/02/20 Therapeutic Interventions Therapeutic Interventions Aquatic Therapy,Balance Training,Gait Training,Home Exercise Program,Joint Mobilizations,Manual Therapy, Neuromuscular Re-education, Patient/Caregiver Education, Self-Care/Home Management,Soft Tissue Mobilization,Taping, Therapeutic Activities, Therapeutic Exercises Modalities Cold Pack/Ice Massage,Electric Stimulation,Hot Packs, Infrared Therapy,Traction- Mechanical,Ultrasound Next Visit Focus/Plan Next Note Type Treatment Note Next Visit Plan review tennis ball release stm at glute med tendon lateral hip line stretch open book stretch hip stability ex
--- NOTE | 2020-12-10 12:18 | PT.OPPOC ---
Physical, Occupational & Speech Therapy At [facility] Current Diagnoses Sciatica, unspecified side (12/10/20) Visit Care Team Role Provider Type Duke Leon MD Attending Provider Physician Primary Care Provider Referring Provider Specialty: Internal Medicine Address: [address] [place] [address], [id number] Email: [email or web address] Plan Of Care PT-OP-T Assessment and Plan Start: 10/03/20 12:09 Freq: Status: Active Protocol: Document 12/10/20 09:49 HH (Rec: 12/10/20 12:18 HH [id number]) Physical Therapy Assessment Goals LEFS Impairment pt scores 39 from IE Short Term Goal (STG) 12/10 pt scores 67 Care Home Goal (LTG) pt will score >70 on LEFS to show improved activity tolerance such as hiking, running and hopping without increase in discomfort. LTG Duration 1 month HEP Impairment pt does not have a HEP now Short Term Goal (STG) pt will be compliant to his dialy HEP safely and independently, which allows him to manage his discomfort and increase his flexilibty STG Duration 4 weeks Care Home Goal (LTG) 12/10 goal met activity tolerance Impairment pt is scared to continue his yard work and weekly running routine. Short Term Goal (STG) pt will be able to initiate his running routine to 2 times /week with 1-2 miles each time without increase in discomfort 12/10 pt has been biking up to 8 miles without discomfort. He will initiate running next week STG Duration 4weeks Care Home Goal (LTG) cont in progress pt will be able to complete his running routine to 3 times /week with 3-4 miles each time without discomfort LTG Duration 8weeks pain Impairment pt has pain at night 7/10 Short Term Goal (STG) pt will have pain no more than 5/10 at night to improve his sleep 3 out of 7 nights. 12/10 goal met. Pt is able to sleep on his back and side. STG Duration 4 weeks Cold Food Packer Goal (LTG) pt will have pain no more than 3/10 at night so he sleep on his R side and maintain good quality of sleep 5 out of 7 nights. LTG Duration 8 weeks Assessment Summary Assessment pt has shown improvements for the past 2 weeks with decreased pain and increaased acitvity tolerance. He can mary ann biking without discomfort. Initiated treadmill walking/ jogging today and noticed pt does has R knee valgus thrust so Provided him with crabwalk and step up for HEP. Pt's insurance has and will have to wait for approval in order to continue therapy. I believe pt will continue to benefit from skilled therapy to improve his hip mobility and SL stability to reduce mechanical stress to his IT band during running and biking . Physical Therapy Plan Frequency and Duration Frequency of Treatment 1x/Week Duration of Treatment 6 weeks Plan of Care Start Date 12/10/20 Plan of Care End Date 01/24/21 Therapeutic Interventions Therapeutic Interventions Aquatic Therapy,Balance Training,Gait Training,Home Exercise Program,Joint Mobilizations,Manual Therapy, Neuromuscular Re-education, Patient/Caregiver Education, Self-Care/Home Management,Soft Tissue Mobilization,Taping, Therapeutic Activities, Therapeutic Exercises Modalities Cold Pack/Ice Massage,Electric Stimulation,Hot Packs, Infrared Therapy,Traction- Mechanical,Ultrasound Next Visit Focus/Plan Next Note Type Treatment Note Next Visit Plan review tennis ball release stm at glute med tendon lateral hip line stretch open book stretch hip stability ex Plan of Care Dates Plan of Care Start Date 12/10/20 Plan of Care End Date 01/24/21 Electronically Signed by: Louie Kitchen PT 12/10/20 [id number] Please Sign and Return: I have reviewed this Plan of Care and certify that the skilled therapy services above are required to meet the patient?s needs. Physician Signature Date Printed Name and Credentials Clinical Instructor Signature Printed Name and Credentials
--- NOTE | 2020-12-10 12:19 | PT.OTN ---
Current Diagnoses Sciatica, unspecified side (12/10/20) Physical Therapy Treatment Note PT-OP-A Visit Information Start: 10/03/20 12:09 Freq: Status: Active Protocol: Document 12/10/20 09:49 HH (Rec: 12/10/20 12:18 HH [id number]) Out-Patient Physical Therapy Visit Information Visit Information Visit Type Progress Note Visit Start Time 13:47 Visit Stop Time 14:30 Total Visit Minutes 43 Visit Number 7/6 Number of BAKER CHEF Visits 0 PT-OP-B Current Condition Start: 10/03/20 12:09 Freq: Status: Active Protocol: Document 10/03/20 12:10 HH (Rec: 10/03/20 12:35 HH [email or web address]) Current Condition History of Current Condition Onset Date 10 days ago Current Complaints R lateral hip pain, radiating pain to lateral knee, difficulty sleeping History of Current Condition Marlo is a 60 active and healthy male here for his new onset of R lateral hip pain with radiating pain to lateral knee started 10 days ago. No known injury. His pain is very severe 11/01 that affects his sleep since then. He has not been able to sleep well and on his R side (pt is a side sleeper). He notices bending over, lying in flat surface tend to aggravate his pain and it comes with some tingling sensation. Standing and walking seem not to bother him as much. 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 PMH includes a hip injury at the same location few years ago from play ice hockey. Future Testing and Treatments Planned terra is currently taking oxycodone and antiinflammatory medications for pain management. Personal Factors Other Personal Factors That May Effect DM II Therapy/Recovery PT-OP-C Subjective Start: 10/03/20 12:09 Freq: Status: Active Protocol: Document 12/10/20 09:49 HH (Rec: 12/10/20 12:18 HH [id number]) OP-PT Subjective Patient Comments Patient Comments I can sleep on my back and my R side now. It slwoly getting better. I dont have that extremem sharp pain. Biking twice a week. Patient Reported Progress Improving Patient Questionnaires Lower Extremity Functional Scale LEFS Score 67 LEFS Impairment 1 to 19% Impaired (Score 63-79 ) PT-OP-D Balance Start: 10/03/20 12:09 Freq: Status: Active Protocol: Document 10/03/20 12:10 HH (Rec: 10/03/20 12:35 [email or web address]) Balance Tests Single Limb Standing Single Limb- Right >20 no deficits noted Single Limb- Left >20 no deficits noted PT-OP-F Manual Assessment Start: 10/03/20 12:09 Freq: Status: Active Protocol: Document 10/03/20 12:10 HH (Rec: 10/03/20 12:35 HH [email or web address]) Manual Assessments Soft Tissue Assessment Soft Tissue Mobility Assessment significant pain with pressure at gluteus medius tendon above R greater trochanter. moderate discomfort with pressure at R TFL PT-OP-G Mobility & Gait Start: 10/03/20 12:09 Freq: Status: Active Protocol: Document 10/03/20 12:10 HH (Rec: 10/03/20 12:35 [email or web address]) OP Gait Assessment Comments Gait Comments L hip drop noted during R stance phase PT-OP-H Neuro Start: 10/03/20 12:09 Freq: Status: Active Protocol: Document 10/03/20 12:10 HH (Rec: 10/03/20 12:35 [email or web address]) Sensation Evaluation Gross Sensation Gross Sensation WNL Deep Tendon Reflex & Clonus Assessment Deep Tendon Reflex Left Patellar Deep Tendon Reflex 2+ Normal Right Patellar Deep Tendon Reflex 1+ Diminished Bilateral Achilles Deep Tendon Reflex 2+ Normal PT-OP-K Range of Motion Start: 10/03/20 12:09 Freq: Status: Active Protocol: Document 10/03/20 12:10 HH (Rec: 10/03/20 12:35 [email or web address]) Lumbar Spine Range of Motion Lumbar Spine Active Degrees Comments toe touch test= 12.5 inches from the floor. insufficent lumbar flexion and hip flexion SB to R= 22 inches with posterior hip pain on R SB to L= 23 inches without pain Hip Goniometric Range of Motion Hip Left Active Hip ROM WFL No Straight Leg Raise 48 Right Active Hip ROM WFL No Straight Leg Raise 45 PT-OP-L Special Tests Start: 10/03/20 12:09 Freq: Status: Active Protocol: Document 10/03/20 12:10 HH (Rec: 10/03/20 12:35 [email or web address]) Special Tests Lumbar Spine Special Tests quadrant test Test Results pain at posterior hip Comments extension, SB and rot to R Slump Test Results -ve Straight Leg Raise Test Results -ve Hip Special Tests KIRSTEN test Test Results +VE B Comments both LE stay at parallel to table without any adduction. PT-OP-M Strength Start: 10/03/20 12:09 Freq: Status: Active Protocol: Document 10/03/20 12:10 HH (Rec: 10/03/20 12:35 [email or web address]) Hip Strength Hip Manual Muscle Testing Right Flexion (L2) 4+ Good+ Extension (S1) 4+ Good+ Abduction 4+ Good+ Adduction 4+ Good+ Left Flexion (L2) 4+ Good+ Extension (S1) 4+ Good+ Abduction 4+ Good+ Adduction 4+ Good+ Knee Strength Knee Manual Muscle Testing Right Flexion (S2) 5 Normal Extension (L3) 5 Normal Left Flexion (S2) 5 Normal Extension (L3) 5 Normal Ankle/Foot Strength Ankle and Foot Manual Muscle Testing Right Dorsiflexion (L4) 5 Normal Plantarflexion (S1) 5 Normal Left Dorsiflexion (L4) 5 Normal Plantarflexion (S1) 5 Normal PT-OP-Q Treatments Start: 10/03/20 12:09 Freq: Status: Active Protocol: Document 12/10/20 09:49 HH (Rec: 12/10/20 12:18 [id number]) Cardio Equipment Bicycle (Upright) Duration (Minutes) 8 Resistance 7 Other cues to prevent R knee valgus Treadmill Duration (Minutes) 8 Speed 3.5 Other cues to prevent R knee valgus Therapeutic Exercises Supine Exercises adyron stretch Supine Exercise Name review with pt Side right Reps/Minutes 8 mins Comments pt completed correctly Standing Exercises step up Resistance 10 step Reps/Minutes 12 times Comments cues on preventing R knee valgus crabwalk Resistance red band Reps/Minutes 20ft x 8 Comments cues on neutral feet position. Manual Therapy Treatment Soft Tissue Mobilization R lateral quad Body Location and distal IT band Mobilization Type Myofascial Release,Sustained Pressure,Trigger Point Release Intensity/Depth Superficial Body Position Sidelying Comments decreased tonicity noted. glute medius Body Location tendon Mobilization Type Myofascial Release,Sustained Pressure,Trigger Point Release Intensity/Depth Superficial Body Position Sidelying Comments minimal tonicity noted. PT-OP-T Assessment and Plan Start: 10/03/20 12:09 Freq: Status: Active Protocol: Document 12/10/20 09:49 HH (Rec: 12/10/20 12:18 HH [id number]) Physical Therapy Assessment Goals LEFS Impairment pt scores 39 from IE Short Term Goal (STG) 12/10 pt scores 67 Superintendent Stevedoring Goal (LTG) pt will score >70 on LEFS to show improved activity tolerance such as hiking, running and hopping without increase in discomfort. LTG Duration 1 month HEP Impairment pt does not have a HEP now Short Term Goal (STG) pt will be compliant to his dialy HEP safely and independently, which allows him to manage his discomfort and increase his flexilibty STG Duration 4 weeks Mcfp Goal (LTG) 12/10 goal met activity tolerance Impairment pt is scared to continue his yard work and weekly running routine. Short Term Goal (STG) pt will be able to initiate his running routine to 2 times /week with 1-2 miles each time without increase in discomfort 12/10 pt has been biking up to 8 miles without discomfort. He will initiate running next week STG Duration 4weeks Superintendent Stevedoring Goal (LTG) cont in progress pt will be able to complete his running routine to 3 times /week with 3-4 miles each time without discomfort LTG Duration 8weeks pain Impairment pt has pain at night 7/10 Short Term Goal (STG) pt will have pain no more than 5/10 at night to improve his sleep 3 out of 7 nights. 12/10 goal met. Pt is able to sleep on his back and side. STG Duration 4 weeks Superintendent Stevedoring Goal (LTG) pt will have pain no more than 3/10 at night so he sleep on his R side and maintain good quality of sleep 5 out of 7 nights. LTG Duration 8 weeks Assessment Summary Assessment pt has shown improvements for the past 2 weeks with decreased pain and increaased acitvity tolerance. He can mary ann biking without discomfort. Initiated treadmill walking/ jogging today and noticed pt does has R knee valgus thrust so Provided him with crabwalk and step up for HEP. Pt's insurance has and will have to wait for approval in order to continue therapy. I believe pt will continue to benefit from skilled therapy to improve his hip mobility and SL stability to reduce mechanical stress to his IT band during running and biking . Physical Therapy Plan Frequency and Duration Frequency of Treatment 1x/Week Duration of Treatment 6 weeks Plan of Care Start Date 12/10/20 Plan of Care End Date 01/24/21 Therapeutic Interventions Therapeutic Interventions Aquatic Therapy,Balance Training,Gait Training,Home Exercise Program,Joint Mobilizations,Manual Therapy, Neuromuscular Re-education, Patient/Caregiver Education, Self-Care/Home Management,Soft Tissue Mobilization,Taping, Therapeutic Activities, Therapeutic Exercises Modalities Cold Pack/Ice Massage,Electric Stimulation,Hot Packs, Infrared Therapy,Traction- Mechanical,Ultrasound Next Visit Focus/Plan Next Note Type Treatment Note Next Visit Plan review tennis ball release stm at glute med tendon lateral hip line stretch open book stretch hip stability ex
--- NOTE | 2021-03-13 15:07 | PT.OPDS ---
Current Diagnoses Sciatica, unspecified side (12/10/20) Visit Care Team Role Provider Type Duke Leon MD Attending Provider Physician Primary Care Provider Referring Provider Specialty: Internal Medicine Address: [address] [place] [address], [id number] Email: [email or web address] Visit Number Visit Number 10/28 Discharge Summary PT-OP-T Assessment and Plan Start: 10/03/20 12:09 Freq: Status: Active Protocol: Document 03/13/21 15:06 (Rec: 03/13/21 15:07 [email or web address]) Physical Therapy Plan Discharge Physical Therapy Discharge Reasons No Longer Attending PT Discharge Comments pt is no longer attending PT,. DC from PT today
== END 2021-05-26 09:33 ==
LOC: PHYS 09:45
PROVIDERS: PCP Internal Medicine; Referring Provider Internal Medicine; Visit Provider Internal Medicine
DX: M54.30 Sciatica, unspecified side (principal)
CPT/HCPCS: 97110; 97140; 97161

== ENCOUNTER → 2021-02-03 08:08 | Outpatient (CLI) | payer OTHER, SELFPAY ==
[2021-02-03 09:08] LABS: Hemoglobin A1C% w Est Avg Glu 8.6 % (4.0-6.0)
[2021-02-03 09:18] LABS: Cholesterol 166 mg/dL (140-199); HDL Cholesterol 75 mg/dL (40-60); LDL Cholesterol Calculated 74 mg/dL (<100); Triglycerides 83 mg/dL (35-150)
== END ==
PROVIDERS: PCP Internal Medicine; Referring Provider Internal Medicine Endocrinology, Diabetes & Metabolism; Visit Provider Internal Medicine Endocrinology, Diabetes & Metabolism
DX: E11.9 Type 2 diabetes mellitus without complications (principal)
CPT/HCPCS: 36415; 80061; 83036

== ENCOUNTER → 2021-05-01 09:39 | Outpatient (CLI) | payer OTHER, SELFPAY ==
[2021-05-01 10:49] LABS: Hemoglobin A1C% w Est Avg Glu 8.3 % (4.0-6.0)
[2021-05-01 13:22] LABS: Alanine Aminotransferase 21 IU/L (<50); Albumin 4.6 g/dL (3.5-5.0); Albumin Globulin Ratio 1.4 (1.0-2.8); Alkaline Phosphatase 46 U/L (38-126); Aspartate Aminotransferase 25 IU/L (17-59); BUN Creatinine Ratio 14.5 (6-22); Bilirubin Total 0.4 mg/dL (0.2-1.3); Blood Urea Nitrogen 11 mg/dL (9-20); Carbon Dioxide 30 mmol/L (22-32); Chloride 96 mmol/L (98-107); Cholesterol 171 mg/dL (140-199); Estimated Glomerular Filt Rate > 60.0 mL/min (>60); Globulin 3.2 g/dL (1.7-4.1); Glucose 112 mg/dL (80-110); HDL Cholesterol 79 mg/dL (40-60); HEMOLYSIS < 15 (0-50); LDL Cholesterol Calculated 85 mg/dL (<100); Potassium 4.2 mmol/L (3.4-5.1); Sodium 133 mmol/L (137-145); Total Protein 7.8 g/dL (6.3-8.2); Triglycerides 33 mg/dL (35-150)
[2021-05-01 15:35] LABS: Creatinine Urine Random 87.9 mg/dL
[2021-05-01 15:42] LABS: Microalbumi Creatinin Ratio Ur 9.1 ug/mg CR (<30); Microalbumin Urine Random 0.8 mg/dL (0-1.6)
== END ==
PROVIDERS: PCP Internal Medicine; Referring Provider Internal Medicine Endocrinology, Diabetes & Metabolism; Visit Provider Internal Medicine Endocrinology, Diabetes & Metabolism
DX: E11.9 Type 2 diabetes mellitus without complications (principal)
CPT/HCPCS: 36415; 80053; 80061; 82043; 82570; 83036

== ENCOUNTER → 2021-05-25 09:31 | Outpatient (CLI) | payer OTHER, SELFPAY ==
--- NOTE | 2021-05-25 09:32 | DI.RAD.S_ITS ---
PROCEDURE: XR FOOT RT MIN 3V INDICATIONS: R ankle injury, nonambulatory TECHNIQUE: 3 views of the foot were acquired. COMPARISON: None. FINDINGS: Bones: No fractures or dislocations of the foot. Minimal hallux valgus and osteophytosis of the 1st metatarsophalangeal joint. Oblique fracture of the distal fibula. Soft tissues: No tibiotalar joint effusion. IMPRESSION: No acute osseous abnormality of the foot. Dictated by: Mikel Joyce M.D. on 05/25/2021 at 10:08 Approved by: Mikel Joyce M.D. on 05/25/2021 at 10:09
--- NOTE | 2021-05-25 09:32 | DI.RAD.S_ITS ---
PROCEDURE: XR ANKLE RT MIN 3V INDICATIONS: R ankle injury, nonambulatory TECHNIQUE: 3 views of the ankle were acquired. COMPARISON: None. FINDINGS: Bones: Mildly displaced, oblique fracture of the distal fibula. The remaining visualized osseous structures appear maintained. No suspicious bony lesions. Soft tissues: No tibiotalar joint effusion. Diffuse ankle soft tissue swelling. IMPRESSION: Oblique fracture of the distal fibula. Dictated by: Mikel Joyce M.D. on 05/25/2021 at 10:09 Approved by: Mikel Joyce M.D. on 05/25/2021 at 10:10
== END ==
PROVIDERS: PCP Internal Medicine; Referring Provider Physician Assistant; Visit Provider Physician Assistant
DX: S82.431A Displaced oblique fracture of shaft of right fibula, initial encounter for closed fracture (principal); X58.XXXA Exposure to other specified factors, initial encounter
CPT/HCPCS: 73610; 73630

== ENCOUNTER → 2021-08-04 08:08 | Outpatient (CLI) | payer OTHER, SELFPAY ==
[2021-08-04 09:15] LABS: Hemoglobin A1C% w Est Avg Glu 8.2 % (4.0-6.0)
== END ==
PROVIDERS: PCP Internal Medicine; Referring Provider Internal Medicine Endocrinology, Diabetes & Metabolism; Visit Provider Internal Medicine Endocrinology, Diabetes & Metabolism
DX: E11.9 Type 2 diabetes mellitus without complications (principal)
CPT/HCPCS: 36415; 83036

== ENCOUNTER → 2021-09-17 08:20 | Outpatient (CLI) | payer OTHER, SELFPAY | PROVIDERS: PCP Internal Medicine; Visit Provider Nurse Practitioner Family | DX: R10.9 Unspecified abdominal pain (principal) | CPT/HCPCS: 87086 ==

== ENCOUNTER 2021-09-19 06:21 | Emergency (ER) | payer OTHER, SELFPAY ==
[2021-09-19 06:27] VITALS: BP 195/97; PULSE 81; RESP 18; TEMP 36.8; O2SAT 100; BMI 23.1
--- NOTE | 2021-09-19 06:35 | DI.CT.S_ITS ---
PROCEDURE: CT ABDOMEN PELVIS W CON INDICATIONS: Left-sided abdominal pain x3 days TECHNIQUE: After the administration of IV contrast, axial sections were acquired from the lung bases to the pubic symphysis. Coronal and sagittal reformats were performed. For radiation dose reduction, the following was used: automated exposure control, adjustment of mA and/or kV according to patient size. COMPARISON: [facility], CT, CT ABDOMEN PELVIS W CON, 04/24/2019, 5:05. FINDINGS: Image quality: Excellent. Lung bases: Unremarkable. Heart: No significant findings. ABDOMEN: Liver: Liver is enlarged measuring 19.4 cm with steatosis. Gallbladder: Unremarkable. Biliary ducts: Unremarkable. Pancreas: Unremarkable. Spleen: Unremarkable. Adrenal Glands: Unremarkable. Kidneys and Ureters: Nonobstructing 5 mm left midpole renal calcification, Hounsfield units 380. Simple left renal cyst. Stomach and Bowel: Stomach, small bowel loops, and colon are unremarkable. Minimal hiatal hernia. Mild to moderate colonic stool without obstruction. Scattered colonic diverticula without inflammatory change. Appendix is normal. Peritoneum: No abnormal intraperitoneal fluid. No free air. Ventral Wall: No hernia. Abdominal Nodes: No retroperitoneal or mesenteric adenopathy by size criteria. Vessels: Aorta and inferior vena cava are normal in size. PELVIS: Pelvic Organs: Unremarkable. Bladder: Unremarkable. Pelvic Nodes: No enlarged lymph nodes. Miscellaneous: No inguinal hernias are seen. Bones: Unremarkable. IMPRESSION: Colonic stool suggestive constipation without obstruction. Nonobstructing left renal calculus. Diverticulosis. The above findings are concordant with preliminary report. Dictated by: Lindsay Rick M.D. on 09/19/2021 at 8:11 Approved by: Lindsay Rick M.D. on 09/19/2021 at 8:13
--- NOTE | 2021-09-19 06:36 | ED.GENADULT ---
HPI - General Adult <Reymundo Gallardo DO - Last Filed: 09/19/21 18:10> General Chief complaint: Abdominal Pain Stated complaint: low left sided abd pain x2 days Time Seen by Provider: 09/19/21 06:28 Source: patient Mode of arrival: Ambulatory Limitations: no limitations History of Present Illness HPI narrative: 60-year-old male. Is an insulin-dependent diabetic. Also has a history of high blood pressure and history of reflux disease he is here for evaluation of left-sided abdominal pain. He states that his current symptoms have been going on for the past couple days. No change in bowel habits. Some nausea but no vomiting. He was seen in the walk-in clinic a couple days ago was told that it was a ?stomach issue ?was placed on pantoprazole. That medicine has not been helping. He had very similar symptoms to this several years ago and after being on what sounds like a proton pump inhibitor for period of time symptoms improved. He has had a colonoscopy in the past. The last 1 was earlier this year. There were no polyps taken. He states that he was told that he had diverticulosis. No other abdominal surgeries. Related Data Home Medications Medication Instructions Recorded Confirmed atorvastatin 10 mg tablet 10 mg PO DAILY 05/25/21 05/25/21 insulin aspart U-100 100 unit/mL 5 unit SUBCUT TID 05/25/21 05/25/21 (3 mL) subcutaneous pen (Novolog Flexpen U-100 Insulin aspart) insulin glargine 100 unit/mL 10 unit SUBCUT QPM 05/25/21 05/25/21 subcutaneous solution (Lantus U-100 Insulin) lisinopril 2.5 mg tablet 2.5 mg PO DAILY 05/25/21 05/25/21 metformin 500 mg tablet 500 mg PO DAILY 05/25/21 05/25/21 Previous Rx's Medication Instructions Recorded pantoprazole 40 mg tablet,delayed 40 mg PO DAILY #20 tab 04/24/19 release (Protonix) pantoprazole 40 mg tablet,delayed 40 mg PO DAILY #20 tab 09/17/21 release (Protonix) gabapentin 300 mg capsule 300 mg PO TID #30 cap 09/19/21 (Neurontin) oxycodone 5 mg tablet 5 mg PO QID PRN #14 tab 09/19/21 valacyclovir 1 gram tablet 1,000 mg PO Q8H 7 Days #21 tab 09/19/21 (Valtrex) Allergies Allergy/AdvReac Type Severity Reaction Status Date / Time No Known Drug Allergies Allergy Verified 05/25/21 09:11 Review of Systems <DO Zoraida Coleman Last Filed: 09/19/21 18:10> Constitutional Constitutional: Denies fever(s) Cardiovascular Cardiovascular: Reports system reviewed and no additional complaints, except as documented Respiratory Respiratory: Reports system reviewed and no additional complaints, except as documented Gastrointestinal Gastrointestinal: Reports abdominal pain, Denies change in bowel habits, Reports nausea and Denies vomiting Genitourinary Genitourinary: Denies dysuria Integumentary/Breasts Skin/Breast: Reports system reviewed and no additional complaints, except as documented Hematologic/Lymphatic On Anticoagulants: No Patient History <DO Zoraida Coleman Last Filed: 09/19/21 18:10> Medical History Diabetes Social History Smoking Status: Never smoker Smoking Status: Never smoker alcohol intake frequency: 0-2 drinks per day Substance Use Type: does not use Exam <DO Zoraida Coleman Last Filed: 09/19/21 18:10> Initial Vital Signs Initial Vital Signs: Vital Signs Temperature 98.2 F 09/19/21 06:27 Pulse Rate 81 09/19/21 06:27 Respiratory Rate 18 09/19/21 06:27 Blood Pressure 195/97 H 09/19/21 06:27 Pulse Oximetry 100 09/19/21 06:27 Const General: cooperative and healthy appearing [facility] Head: normal to inspection and normocephalic Resp Effort & Inspection: normal respiratory effort Auscultation: clear to auscultation bilaterally Cardio Rate: regular rate Rhythm: regular rhythm GI Inspection: normal to inspection and non-distended Palpation: soft, No guarding and tender (Left side abdomen, no left upper quadrant tenderness.) Skin General: no rashes or lesions noted Neuro General: patient alert, patient awake and moves all extremities Extrem General: normal to inspection and capillary refill normal Psych Appearance: grossly normal and well kempt <Shirin Henderson DO - Last Filed: 09/19/21 19:38> Initial Vital Signs Initial Vital Signs: Vital Signs Temperature 98.2 F 09/19/21 06:27 Pulse Rate 81 09/19/21 06:27 Respiratory Rate 18 09/19/21 06:27 Blood Pressure 195/97 H 09/19/21 06:27 Pulse Oximetry 100 09/19/21 06:27 Course <Reymundo Gallardo DO - Last Filed: 09/19/21 18:10> Orders Ordered: Discontinued Medications Sodium Chloride (Normal Saline 0.9%) 1,000 mls @ 1,000 mls/hr IV BOLUS ONE Stop: 09/19/21 07:33 Last Infusion: 09/19/21 07:49 Dose: 0 mls/hr Documented by: Admin: 09/19/21 06:41 Dose: 1,000 mls/hr Documented by: LIZZY Ketorolac Tromethamine (Ketorolac 30 Mg/Ml Vial) 15 mg IV NOW ONE Stop: 09/19/21 07:36 Last Admin: 09/19/21 07:49 Dose: 15 mg Documented by: MUNIR Morphine Sulfate (Morphine 4 Mg/Ml Inj) 4 mg IV NOW ONE Stop: 09/19/21 09:03 Last Admin: 09/19/21 09:15 Dose: 4 mg Documented by: ADELAIDE Pantoprazole Sodium (Pantoprazole 40 Mg Vial) 40 mg IV NOW ONE Stop: 09/19/21 06:35 Last Admin: 09/19/21 06:43 Dose: 40 mg Documented by: LIZZY Vital Signs Vital signs: Vital Signs - 8 hr 09/19/21 06:27 Temperature 98.2 F Pulse Rate 81 Respiratory Rate 18 Blood Pressure 195/97 H Pulse Oximetry 100 <Shirin Henderson DO - Last Filed: 09/19/21 19:38> Orders Ordered: Discontinued Medications Sodium Chloride (Normal Saline 0.9%) 1,000 mls @ 1,000 mls/hr IV BOLUS ONE Stop: 09/19/21 07:33 Last Infusion: 09/19/21 07:49 Dose: 0 mls/hr Documented by: Admin: 09/19/21 06:41 Dose: 1,000 mls/hr Documented by: LIZZY Ketorolac Tromethamine (Ketorolac 30 Mg/Ml Vial) 15 mg IV NOW ONE Stop: 09/19/21 07:36 Last Admin: 09/19/21 07:49 Dose: 15 mg Documented by: MUNIR Morphine Sulfate (Morphine 4 Mg/Ml Inj) 4 mg IV NOW ONE Stop: 09/19/21 09:03 Last Admin: 09/19/21 09:15 Dose: 4 mg Documented by: ADELAIDE Pantoprazole Sodium (Pantoprazole 40 Mg Vial) 40 mg IV NOW ONE Stop: 09/19/21 06:35 Last Admin: 09/19/21 06:43 Dose: 40 mg Documented by: LIZZY Reevaluation(s) Reevaluation #1: This is a 60-year-old male who comes emergency department signed out to myself by Dr. Gallardo. Patient was seen independently evaluated. He is nontender on exam but endorses left lower quadrant particularly left flank pain. He states it was gradual onset but starting in the left flank. Urine sample has not been obtained, labs show a hyponatremia but no major abdominal abnormalities. CT imaging is pending. Patient is requesting something for pain. He had been given Protonix earlier if he stated that was helpful. Time: 07:36 Vital Signs Vital signs: Vital Signs - 8 hr 09/19/21 06:27 Temperature 98.2 F Pulse Rate 81 Respiratory Rate 18 Blood Pressure 195/97 H Pulse Oximetry 100 Medical Decision Making <Reymundo Gallardo DO - Last Filed: 09/19/21 18:10> Lab Data Result diagrams: 09/19/21 06:35 09/19/21 06:35 Labs: Lab Results 09/19/21 09/19/21 09/19/21 Range/Units 06:35 06:35 08:12 WBC 5.1 (4.5-11.0) X10^3/uL RBC 4.46 L (4.5-5.9) X10^6/uL Hgb 14.2 (13.5-17.5) g/dL Hct 40.4 L (41-53) % MCV 90.6 (80-100) fL MCH 31.7 (26-34) PG MCHC 35.0 (30-36) % RDW 13.2 (11.6-14.8) % Plt Count 263 (150-400) X10^3/uL Neut % (Auto) 66.7 (50-75) % Lymph % (Auto) 17.8 L (25-40) % Blair % (Auto) 13.4 (3-14) % Eos % (Auto) 1.3 L (2-4) % Baso % (Auto) 0.8 (0-2) % Neut # (Auto) 3400 (1865-6610) /uL Lymph # (Auto) 900 L (8215-6666) /uL Blair # (Auto) 700 (0-900) /uL Eos # (Auto) 100 (0-450) /uL Baso # (Auto) 0 (0-100) /uL Sodium 129 L (137-145) mmol/L Potassium 4.2 (3.4-5.1) mmol/L Chloride 91 L (98-107) mmol/L Carbon Dioxide 29 (22-32) mmol/L BUN 13 (9-20) mg/dL Creatinine 0.74 (0.66-1.25) mg/dL Estimated GFR > 60 (>60) mL/min BUN/Creatinine Ratio 17.6 (6-22) Glucose 193 H (80-110) mg/dL Calcium 9.4 (8.4-10.2) mg/dL Total Bilirubin 0.6 (0.2-1.3) mg/dL AST 28 (17-59) IU/L ALT 21 (<50) IU/L Alkaline Phosphatase 62 (38-126) U/L Total Protein 7.4 (6.3-8.2) g/dL Albumin 4.5 (3.5-5.0) g/dL Globulin 2.9 (1.7-4.1) g/dL Albumin/Globulin Ratio 1.6 (1.0-2.8) Lipase 26 (23-300) U/L Urine RBC 5-10/hpf H (0-5/HPF) Urine WBC 10-30/hpf H (0-5/HPF) Ur Squamous Epith Cells 5-10 /hpf H (0-5/HPF) Urine Bacteria Many (>30) H (None) Ur Culture Indicated? Cult not indicated Urine Dip Bedside Urine Glucose 500 mg/dl Bedside Urine Bilirubin - Negative Bedside Urine Ketone ++ 40 Urine Specific Orlinda 1.015 Bedside Urine Occult Blood - Negative Bedside Urine pH 6 Bedside Urine Protein - Negative Bedside Urine Urobilinogen +/- 1mg Bedside Urine Nitrite - Negative Bedside Urine Leukocytes - Negative Esterase Point of care testing: Urine Dip Bedside Urine Glucose 500 mg/dl Bedside Urine Bilirubin - Negative Bedside Urine Ketone ++ 40 Urine Specific Orlinda 1.015 Bedside Urine Occult Blood - Negative Bedside Urine pH 6 Bedside Urine Protein - Negative Bedside Urine Urobilinogen +/- 1mg Bedside Urine Nitrite - Negative Bedside Urine Leukocytes - Negative Esterase MDM Narrative Medical decision making narrative: Patient does have a diagnosis of diverticulosis. The discomfort that he is having is more on his left flank/left lower quadrant rather than his left upper quadrant. I do have a higher suspicion for something like diverticulitis rather than gastritis. Labs ordered. CT scan ordered. He states that an IV dose of his pantoprazole has helped his symptoms in the past so I will order Protonix. Care turned over to Dr. Henderson to follow-up on labs and CT scan and disposition. <Shirin Henderson, - Last Filed: 09/19/21 19:38> Lab Data Labs: Lab Results 09/19/21 09/19/21 09/19/21 Range/Units 06:35 06:35 08:12 WBC 5.1 (4.5-11.0) X10^3/uL RBC 4.46 L (4.5-5.9) X10^6/uL Hgb 14.2 (13.5-17.5) g/dL Hct 40.4 L (41-53) % MCV 90.6 (80-100) fL MCH 31.7 (26-34) PG MCHC 35.0 (30-36) % RDW 13.2 (11.6-14.8) % Plt Count 263 (150-400) X10^3/uL Neut % (Auto) 66.7 (50-75) % Lymph % (Auto) 17.8 L (25-40) % Blair % (Auto) 13.4 (3-14) % Eos % (Auto) 1.3 L (2-4) % Baso % (Auto) 0.8 (0-2) % Neut # (Auto) 3400 (6743-5291) /uL Lymph # (Auto) 900 L (1425-8992) /uL Blair # (Auto) 700 (0-900) /uL Eos # (Auto) 100 (0-450) /uL Baso # (Auto) 0 (0-100) /uL Sodium 129 L (137-145) mmol/L Potassium 4.2 (3.4-5.1) mmol/L Chloride 91 L (98-107) mmol/L Carbon Dioxide 29 (22-32) mmol/L BUN 13 (9-20) mg/dL Creatinine 0.74 (0.66-1.25) mg/dL Estimated GFR > 60 (>60) mL/min BUN/Creatinine Ratio 17.6 (6-22) Glucose 193 H (80-110) mg/dL Calcium 9.4 (8.4-10.2) mg/dL Total Bilirubin 0.6 (0.2-1.3) mg/dL AST 28 (17-59) IU/L ALT 21 (<50) IU/L Alkaline Phosphatase 62 (38-126) U/L Total Protein 7.4 (6.3-8.2) g/dL Albumin 4.5 (3.5-5.0) g/dL Globulin 2.9 (1.7-4.1) g/dL Albumin/Globulin Ratio 1.6 (1.0-2.8) Lipase 26 (23-300) U/L Urine RBC 5-10/hpf H (0-5/HPF) Urine WBC 10-30/hpf H (0-5/HPF) Ur Squamous Epith Cells 5-10 /hpf H (0-5/HPF) Urine Bacteria Many (>30) H (None) Ur Culture Indicated? Cult not indicated Urine Dip Bedside Urine Glucose 500 mg/dl Bedside Urine Bilirubin - Negative Bedside Urine Ketone ++ 40 Urine Specific Orlinda 1.015 Bedside Urine Occult Blood - Negative Bedside Urine pH 6 Bedside Urine Protein - Negative Bedside Urine Urobilinogen +/- 1mg Bedside Urine Nitrite - Negative Bedside Urine Leukocytes - Negative Esterase Point of care testing: Urine Dip Bedside Urine Glucose 500 mg/dl Bedside Urine Bilirubin - Negative Bedside Urine Ketone ++ 40 Urine Specific Orlinda 1.015 Bedside Urine Occult Blood - Negative Bedside Urine pH 6 Bedside Urine Protein - Negative Bedside Urine Urobilinogen +/- 1mg Bedside Urine Nitrite - Negative Bedside Urine Leukocytes - Negative Esterase Imaging Data CT scan - abdomen/pelvis: Radiologist's Impression: [address] [address] [address] Scan Report Signed Patient: Marlo Aponte MR#: [id number] : 1960 Acct:[id number] Age/Sex: 60 / M Date of Service: 09/19/21 Loc: ED Accession Number: [id number] ?? Procedure: CT abdomen pelvis w con Ordering Provider: Reymundo Gallardo D.O. PROCEDURE:? CT ABDOMEN PELVIS W CON ? INDICATIONS:? Left-sided abdominal pain x3 days ? TECHNIQUE:? After the administration of IV contrast, axial sections were acquired from the lung bases to the pubic symphysis.? Coronal and sagittal reformats were performed.? For radiation dose reduction, the following was used:? automated exposure control, adjustment of mA and/or kV according to patient size. ? COMPARISON:? [facility], CT, CT ABDOMEN PELVIS W CON, 04/24/2019, 5:05. ? FINDINGS:? Image quality:? Excellent.? ? Lung bases:? Unremarkable.? ? Heart:? No significant findings. ? ? ABDOMEN: Liver:? Liver is enlarged measuring 19.4 cm with steatosis. Gallbladder:? Unremarkable.? ? Biliary ducts:? Unremarkable.? ? Pancreas:? Unremarkable.? ? Spleen:? Unremarkable.? ? Adrenal Glands:? Unremarkable.? ? Kidneys and Ureters:? Nonobstructing 5 mm left midpole renal calcification, Hounsfield units 380. Simple left renal cyst. ? Stomach and Bowel:? Stomach, small bowel loops, and colon are unremarkable.? Minimal hiatal hernia.? Mild to moderate colonic stool without obstruction.? Scattered colonic diverticula without inflammatory change.? Appendix is normal. Peritoneum:? No abnormal intraperitoneal fluid.? No free air.? ? Ventral Wall: ? No hernia.? Abdominal Nodes:? No retroperitoneal or mesenteric adenopathy by size criteria.? Vessels:? Aorta and inferior vena cava are normal in size.? ? PELVIS: Pelvic Organs:? Unremarkable.? ? Bladder:? Unremarkable.? ? Pelvic Nodes: No enlarged lymph nodes.? Miscellaneous: No inguinal hernias are seen. ? ? ? Bones:? Unremarkable.? IMPRESSION:? ? Colonic stool suggestive constipation without obstruction. ? Nonobstructing left renal calculus. ? Diverticulosis. ? The above findings are concordant with preliminary report. ? ? ? Dictated by: Lindsay Rick M.D. on 09/19/2021 at 8:11 ? ? Approved by: Lindsay Rick M.D. on 09/19/2021 at 8:13?? [facility] Narrative Medical decision making narrative: Patient does have a diagnosis of diverticulosis. The discomfort that he is having is more on his left flank/left lower quadrant rather than his left upper quadrant. I do have a higher suspicion for something like diverticulitis rather than gastritis. Labs ordered. CT scan ordered. He states that an IV dose of his pantoprazole has helped his symptoms in the past so I will order Protonix. Care turned over to Dr. Henderson to follow-up on labs and CT scan and disposition. Patient signed out to myself. Patient seen independently evaluated by myself. Patient's labs and imaging reviewed. Urine shows some ketones and glucose but serum glucose is normal with no anion gap and normal bicarb. Patient's sodium is 129, reviewing his medications unlikely that they are cause of this. On examination patient is noted to have rash with erythematous rash of the left lower abdominal dermatome tracking to the anterior over the area of pain with small blisters consistent with shingles. Patient received Toradol followed by narcotic pain medication. Patient has not had his shingles vaccination. He does recall having chickenpox as a child. Patient was started on Valtrex, Neurontin and ibuprofen/Tylenol with narcotic for breakthrough pain. All questions answered, return precautions discussed. Discharge Plan Departure Patient Disposition: Home Clinical Impression: Shingles Instructions: DI for Shingles Activity Restrictions/Additional Instructions: Follow-up with your physician for recheck of your sodium. Call your physician or pharmaceutical compounding supervisor and they can order outpatient BMP to recheck your levels. Your labs reflect signs of dehydration, have ketones and glucose in your urine and her sodium today was 129 this should be rechecked at the beginning of the week, possibly Tuesday. You do have shingles today. Help the rest of your weekend goes much better and that you have a happy anniversary. Take antivirals until completely gone. You may take gabapentin every 8 hours as needed for pain. This medication can be titrated upwards if in adequate your physician can help with this. You may take Tylenol up to a 1000 mg every 6 hours and/or ibuprofen up to 600 mg every 6 hours. If inadequate for pain you may add oxycodone 1-2 tablets every 6 hours as needed. This medication can make you sleepy do not drive, perform hazardous activities or make any major decisions while taking it. This medication will make you constipated please take a stool softener once to twice daily until stools are soft and regular. Prescription sent to [facility] in [place] Please return for fevers, spreading rash, rapidly worsening pain, persistent vomiting, black or bloody stools, difficulty urinating or other new or concerning symptoms. Prescriptions: New valacyclovir [Valtrex] 1 gram tablet 1,000 mg PO Q8H 7 Days Qty: 21 0RF gabapentin [Neurontin] 300 mg capsule 300 mg PO TID Qty: 30 0RF oxycodone 5 mg tablet 5 mg PO QID PRN (Reason: pain) Qty: 14 0RF No Action metformin 500 mg tablet 500 mg PO DAILY 0RF insulin aspart U-100 [Novolog Flexpen U-100 Insulin] 100 unit/mL (3 mL) insulin pen 5 unit SUBCUT TID 0RF Lantus U-100 Insulin 100 unit/mL solution 10 unit SUBCUT QPM 0RF atorvastatin 10 mg tablet 10 mg PO DAILY 0RF lisinopril 2.5 mg tablet 2.5 mg PO DAILY 0RF pantoprazole [Protonix] 40 mg tablet,delayed release (DR/EC) 40 mg PO DAILY Qty: 20 0RF pantoprazole [Protonix] 40 mg tablet,delayed release (DR/EC) 40 mg PO DAILY Qty: 20 0RF Referrals: Duke Leon MD [Primary Care Provider] -
[2021-09-19] MEDS: SODIUM CHLORIDE 0.9% 1,000 ML 1000 ML IV (06:41)
[2021-09-19] MEDS: PANTOPRAZOLE 40 MG VIAL IV (06:43)
[2021-09-19 06:45] LABS: Add Manual Diff / Slide Review NO; Basophils Absolute Auto 0 /uL (0-100); Basophils Percent Auto 0.8 % (0-2); Eosinophils Absolute Auto 100 /uL (0-450); Eosinophils Percent Auto 1.3 % (2-4); Hematocrit 40.4 % (41-53); Hemoglobin 14.2 g/dL (13.5-17.5); Lymphocytes Absolute Auto 900 /uL (1100-4500); Lymphocytes Percent Auto 17.8 % (25-40); Mean Corpuscular Hemoglobin 31.7 PG (26-34); Mean Corpuscular Volume 90.6 fL (80-100); Monocytes Absolute Auto 700 /uL (0-900); Monocytes Percent Auto 13.4 % (3-14); Neutrophils Absolute Auto 3400 /uL (1500-7000); Neutrophils Percent Auto 66.7 % (50-75); Platelet Count 263 X10^3/uL (150-400); Red Blood Cell Count 4.46 X10^6/uL (4.5-5.9); Red Cell Distribution Width 13.2 % (11.6-14.8); White Blood Cell Count 5.1 X10^3/uL (4.5-11.0)
[2021-09-19 06:57] LABS: Alanine Aminotransferase 21 IU/L (<50); Albumin 4.5 g/dL (3.5-5.0); Albumin Globulin Ratio 1.6 (1.0-2.8); Alkaline Phosphatase 62 U/L (38-126); Aspartate Aminotransferase 28 IU/L (17-59); BUN Creatinine Ratio 17.6 (6-22); Bilirubin Total 0.6 mg/dL (0.2-1.3); Blood Urea Nitrogen 13 mg/dL (9-20); Calcium 9.4 mg/dL (8.4-10.2); Carbon Dioxide 29 mmol/L (22-32); Chloride 91 mmol/L (98-107); Estimated Glomerular Filt Rate > 60 mL/min (>60); Globulin 2.9 g/dL (1.7-4.1); Glucose 193 mg/dL (80-110); HEMOLYSIS < 15 (0-50); Lipase 26 U/L (23-300); Potassium 4.2 mmol/L (3.4-5.1); Sodium 129 mmol/L (137-145); Total Protein 7.4 g/dL (6.3-8.2)
[2021-09-19] MEDS: KETOROLAC 30 MG/ML VIAL 15 MG IV (07:49)
[2021-09-19 08:29] LABS: Bacteria Urine Many (>30); Culture Indicated Urine Cult Not Indicated; RBC Urine 5-10/HPF (0-5/HPF); Squamous Epithelial Cell Urine 5-10 /HPF (0-5/HPF); WBC Urine 10-30/HPF (0-5/HPF)
[2021-09-19] MEDS: MORPHINE 4 MG/ML INJ IV (09:15)
[2021-09-19 09:27] VITALS: BP 169/92; PULSE 83; RESP 18; TEMP 37; O2SAT 100
== END 2021-09-19 09:27 | disposition home or self-care (01) ==
PROVIDERS: Emergency Medicine; Emergency Provider Emergency Medicine; PCP Internal Medicine
DX: B02.9 Zoster without complications (principal); R10.32 Left lower quadrant pain; R11.0 Nausea
CPT/HCPCS: 36415; 74177; 80053; 81003; 81015; 83690; 85025; 96374; 96375; 99284; C9113; J1885; J2270; Q9967

== ENCOUNTER → 2022-01-22 09:00 | Outpatient (CLI) | payer OTHER, SELFPAY ==
[2022-01-22 10:14] LABS: Hemoglobin A1C% w Est Avg Glu 8.3 % (4.0-6.0)
== END ==
PROVIDERS: Referring Provider Internal Medicine Endocrinology, Diabetes & Metabolism; Visit Provider Psychiatry & Neurology Neurology
DX: E11.9 Type 2 diabetes mellitus without complications (principal)
CPT/HCPCS: 36415; 83036

== ENCOUNTER → 2022-04-30 09:07 | Outpatient (CLI) | payer OTHER, SELFPAY ==
[2022-04-30 11:27] LABS: Hemoglobin A1C% w Est Avg Glu 8.7 % (4.0-6.0)
[2022-04-30 11:52] LABS: Alanine Aminotransferase 24 IU/L (<50); Albumin 4.4 g/dL (3.5-5.0); Albumin Globulin Ratio 1.6 (1.0-2.8); Alkaline Phosphatase 58 U/L (38-126); Aspartate Aminotransferase 24 IU/L (17-59); BUN Creatinine Ratio 11.9 (6-22); Bilirubin Total 0.6 mg/dL (0.2-1.3); Blood Urea Nitrogen 8 mg/dL (9-20); Calcium 9.6 mg/dL (8.4-10.2); Carbon Dioxide 30 mmol/L (22-32); Chloride 93 mmol/L (98-107); Cholesterol 176 mg/dL (140-199); Estimated Glomerular Filt Rate > 60 mL/min (>60); Globulin 2.8 g/dL (1.7-4.1); Glucose 156 mg/dL (80-110); HDL Cholesterol 73 mg/dL (40-60); HEMOLYSIS < 15 (0-50); LDL Cholesterol Calculated 94 mg/dL (<100); Potassium 4.2 mmol/L (3.4-5.1); Sodium 132 mmol/L (137-145); Total Protein 7.2 g/dL (6.3-8.2); Triglycerides 44 mg/dL (35-150)
[2022-04-30 12:13] LABS: Creatinine Urine Random 81.1 mg/dL
[2022-04-30 12:21] LABS: Microalbumi Creatinin Ratio Ur 9.8 ug/mg CR (<30); Microalbumin Urine Random 0.8 mg/dL (0-1.6)
== END ==
PROVIDERS: Referring Provider Internal Medicine Endocrinology, Diabetes & Metabolism; Visit Provider Internal Medicine Endocrinology, Diabetes & Metabolism
DX: E11.65 Type 2 diabetes mellitus with hyperglycemia (principal)
CPT/HCPCS: 36415; 80053; 80061; 82043; 82570; 83036

== ENCOUNTER → 2022-12-29 08:47 | Outpatient (CLI) | payer OTHER, SELFPAY ==
[2022-12-29 09:32] LABS: Hemoglobin A1C% w Est Avg Glu 8.9 % (4.0-6.0)
[2022-12-29 09:39] LABS: Cholesterol 172 mg/dL (140-199); HDL Cholesterol 70 mg/dL (40-60); LDL Cholesterol Calculated 91 mg/dL (<100); Triglycerides 56 mg/dL (35-150)
[2022-12-29 10:11] LABS: Prostate Specific Antigen Scrn 2.31 ng/mL (0.1-4.0)
[2022-12-29 10:28] LABS: Hep C Virus Ab w/Reflex Quant NEGATIVE s/c (NEGATIVE)
== END ==
PROVIDERS: PCP Student in an Organized Health Care Education/Training Program; Referring Provider Pediatrics; Visit Provider Pediatrics
DX: Z12.5 Encounter for screening for malignant neoplasm of prostate (principal); E11.69 Type 2 diabetes mellitus with other specified complication; E78.5 Hyperlipidemia, unspecified; E11.9 Type 2 diabetes mellitus without complications; Z11.59 Encounter for screening for other viral diseases
CPT/HCPCS: 36415; 80061; 83036; 86803; G0103

== ENCOUNTER → 2023-05-05 08:15 | Outpatient (CLI) | payer OTHER, SELFPAY ==
[2023-05-05 10:39] LABS: Hemoglobin A1C% w Est Avg Glu 8.4 % (4.0-6.0)
[2023-05-05 11:14] LABS: HEMOLYSIS < 15 (0-50)
[2023-05-05 11:39] LABS: Alanine Aminotransferase 21 IU/L (<50); Albumin 4.3 g/dL (3.5-5.0); Albumin Globulin Ratio 1.4 (1.0-2.8); Alkaline Phosphatase 56 U/L (38-126); Aspartate Aminotransferase 24 IU/L (17-59); BUN Creatinine Ratio 15.3 (6-22); Bilirubin Total 0.7 mg/dL (0.2-1.3); Blood Urea Nitrogen 11 mg/dL (9-20); Calcium 9.9 mg/dL (8.4-10.2); Carbon Dioxide 28 mmol/L (22-32); Chloride 94 mmol/L (98-107); Estimated Glomerular Filt Rate > 60 mL/min (>60); Glucose 166 mg/dL (80-110); Potassium 4.4 mmol/L (3.4-5.1); Sodium 131 mmol/L (137-145); Total Protein 7.3 g/dL (6.3-8.2)
[2023-05-05 11:50] LABS: Prostate Specific Antigen Scrn 1.93 ng/mL (0.1-4.0)
== END ==
PROVIDERS: PCP Family Medicine; Referring Provider Family Medicine; Visit Provider Family Medicine
DX: Z12.5 Encounter for screening for malignant neoplasm of prostate (principal); E11.9 Type 2 diabetes mellitus without complications; Z79.4 Long term (current) use of insulin; I10 Essential (primary) hypertension
CPT/HCPCS: 36415; 80053; 83036; G0103

== ENCOUNTER → 2023-08-01 16:42 | Outpatient (CLI) | payer OTHER, SELFPAY ==
[2023-08-01 17:25] LABS: Hemoglobin A1C% w Est Avg Glu 8.7 % (4.0-6.0)
[2023-08-01 17:26] LABS: BUN Creatinine Ratio 21.9 (6-22); Blood Urea Nitrogen 16 mg/dL (9-20); Calcium 9.9 mg/dL (8.4-10.2); Carbon Dioxide 30 mmol/L (22-32); Chloride 95 mmol/L (98-107); Estimated Glomerular Filt Rate > 60 mL/min (>60); Glucose 200 mg/dL (80-110); HEMOLYSIS < 15 (0-50); Potassium 3.9 mmol/L (3.4-5.1); Sodium 132 mmol/L (137-145)
== END ==
LOC: LAB 16:43
PROVIDERS: PCP Family Medicine; Referring Provider Family Medicine; Visit Provider Family Medicine
DX: E11.9 Type 2 diabetes mellitus without complications (principal); I10 Essential (primary) hypertension; E87.1 Hypo-osmolality and hyponatremia
CPT/HCPCS: 36415; 80048; 83036

== ENCOUNTER → 2023-10-31 15:53 | Outpatient (CLI) | payer OTHER, SELFPAY ==
[2023-10-31 17:26] LABS: Hemoglobin A1C% w Est Avg Glu 8.5 % (4.0-6.0)
== END ==
PROVIDERS: PCP Family Medicine; Referring Provider Family Medicine; Visit Provider Family Medicine
DX: E11.65 Type 2 diabetes mellitus with hyperglycemia (principal); Z79.4 Long term (current) use of insulin; I10 Essential (primary) hypertension
CPT/HCPCS: 36415; 83036

== ENCOUNTER → 2024-01-30 15:57 | Outpatient (CLI) | payer OTHER, SELFPAY ==
[2024-01-30 17:46] LABS: Hemoglobin A1C% w Est Avg Glu 8.4 % (4.0-6.0)
[2024-01-30 18:00] LABS: BUN Creatinine Ratio 14.5 (6-22); Blood Urea Nitrogen 11 mg/dL (9-20); Calcium 9.7 mg/dL (8.4-10.2); Carbon Dioxide 31 mmol/L (22-32); Chloride 91 mmol/L (98-107); Estimated Glomerular Filt Rate > 60 mL/min (>60); Glucose 249 mg/dL (80-110); HEMOLYSIS < 15 (0-50); Potassium 4.2 mmol/L (3.4-5.1); Sodium 128 mmol/L (137-145)
[2024-01-30 18:45] LABS: HIV 1 & 2 Ab/Ag 4th Gen Combo NEGATIVE (NEGATIVE)
== END ==
PROVIDERS: PCP Family Medicine; Referring Provider Family Medicine; Visit Provider Family Medicine
DX: E11.65 Type 2 diabetes mellitus with hyperglycemia (principal); Z79.4 Long term (current) use of insulin; I10 Essential (primary) hypertension
CPT/HCPCS: 36415; 80048; 83036; 87389

== ENCOUNTER → 2024-04-27 16:46 | Outpatient (CLI) | payer OTHER, SELFPAY ==
[2024-04-27 17:42] LABS: Hemoglobin A1C% w Est Avg Glu 8.2 % (4.0-6.0)
[2024-04-27 17:50] LABS: HEMOLYSIS < 15 (0-50)
[2024-04-27 17:56] LABS: Alanine Aminotransferase 26 IU/L (<50); Albumin Globulin Ratio 1.5 (1.0-2.8); Alkaline Phosphatase 58 U/L (38-126); Aspartate Aminotransferase 29 IU/L (17-59); BUN Creatinine Ratio 16.7 (6-22); Bilirubin Total 0.6 mg/dL (0.2-1.3); Blood Urea Nitrogen 13 mg/dL (9-20); Calcium 9.6 mg/dL (8.4-10.2); Carbon Dioxide 28 mmol/L (22-32); Chloride 98 mmol/L (98-107); Cholesterol 172 mg/dL (140-199); Estimated Glomerular Filt Rate > 60 mL/min (>60); Globulin 2.7 g/dL (1.7-4.1); Glucose 176 mg/dL (80-110); HDL Cholesterol 76 mg/dL (40-60); LDL Cholesterol Calculated 76 mg/dL (<100); Potassium 4.3 mmol/L (3.4-5.1); Sodium 130 mmol/L (137-145); Total Protein 6.7 g/dL (6.3-8.2); Triglycerides 102 mg/dL (35-150)
[2024-04-27 19:13] LABS: Prostate Specific Antigen Scrn 1.98 ng/mL (0.1-4.0)
== END ==
LOC: LAB 16:46
PROVIDERS: PCP Family Medicine; Referring Provider Family Medicine; Visit Provider Family Medicine
DX: Z12.5 Encounter for screening for malignant neoplasm of prostate (principal); E11.65 Type 2 diabetes mellitus with hyperglycemia; I10 Essential (primary) hypertension; E11.69 Type 2 diabetes mellitus with other specified complication; E78.5 Hyperlipidemia, unspecified; E87.1 Hypo-osmolality and hyponatremia; Z79.4 Long term (current) use of insulin
CPT/HCPCS: 36415; 80053; 80061; 83036; G0103

== ENCOUNTER → 2024-08-07 15:30 | Outpatient (CLI) | payer OTHER, SELFPAY ==
[2024-08-07 17:34] LABS: BUN Creatinine Ratio 14.1 (6-22); Blood Urea Nitrogen 11 mg/dL (9-20); Calcium 9.3 mg/dL (8.4-10.2); Carbon Dioxide 28 mmol/L (22-32); Chloride 98 mmol/L (98-107); Estimated Glomerular Filt Rate > 60 mL/min (>60); Glucose 193 mg/dL (80-110); HEMOLYSIS < 15 (0-50); Potassium 4.2 mmol/L (3.4-5.1); Sodium 132 mmol/L (137-145)
[2024-08-07 17:38] LABS: Hemoglobin A1C% w Est Avg Glu 7.6 % (4.0-6.0)
== END ==
PROVIDERS: PCP Family Medicine; Referring Provider Family Medicine; Visit Provider Family Medicine
DX: E11.65 Type 2 diabetes mellitus with hyperglycemia (principal); Z79.4 Long term (current) use of insulin; E87.1 Hypo-osmolality and hyponatremia; N40.0 Benign prostatic hyperplasia without lower urinary tract symptoms
CPT/HCPCS: 36415; 80048; 83036

== ENCOUNTER → 2025-03-06 16:25 | Outpatient (CLI) | payer OTHER, SELFPAY ==
[2025-03-06 17:29] LABS: Hemoglobin A1C% w Est Avg Glu 8.1 % (4.0-6.0)
== END ==
PROVIDERS: PCP Family Medicine; Referring Provider Family Medicine; Visit Provider Family Medicine
DX: E11.65 Type 2 diabetes mellitus with hyperglycemia (principal); Z79.4 Long term (current) use of insulin
CPT/HCPCS: 36415; 83036